=== PATIENT | female | born 1950 | race Caucasian/White ===

== ENCOUNTER 2017-03-30 16:19 | Observation (INO) | payer MEDICARE, SELFPAY ==
[2017-03-30] VITALS (9 sets, daily range): BP systolic 111–145; BP diastolic 66–75; PULSE 66–75; RESP 16–21; TEMP 36.6–36.9; O2SAT 94–98; BMI 46.3; BMI 46.7; BMI 46.4
[2017-03-30 16:45] LABS: Bedside Glucose 109 mg/dL (70-110)
--- NOTE | 2017-03-30 16:45 | CT_ITS ---
STUDY: CT BRAIN WITHOUT CONTRAST REASON FOR EXAM: Female, 67 years old. Right-sided paresthesias RADIATION DOSAGE (If Supplied By Facility): CTDIvol = ( 44.99 ) mGy, DLP = ( 745.49 ) mGycm TECHNIQUE: Transaxial CT imaging of the brain was performed without administration of intravenous contrast material. Sagittal and coronal images are reformatted. Individualized dose optimization techniques were used for this CT. COMPARISON: 03/23/2014. FINDINGS: Normal soft tissue structures. Normal calvarium. Normal size ventricles and extra-axial spaces for the patient's age. There are areas of decreased attenuation within the white matter tracts of the supratentorial brain, consistent with microvascular disease changes. Normal basal ganglia. Stable small right thalamic lacunar infarct.. Normal brainstem. Normal cerebellum. There is no intracranial hemorrhage. There are no findings of an acute ischemic infarction. Normal visualized paranasal sinuses. CT/Brain/Head without Contrast IMPRESSION: Chronic involutional changes. No acute intracranial processes. Stable right thalamic lacunar infarct. Electronically Signed: Ian Hu DO at 18:38 EST , Service support ,
--- NOTE | 2017-03-30 16:45 | EKG12_ITS ---
Test Reason : NEURO Blood Pressure : / mmHG Vent. Rate : 062 BPM Atrial Rate : 062 BPM P-R Int : 186 ms QRS Dur : 154 ms QT Int : 488 ms P-R-T Axes : 063 -51 098 degrees QTc Int : 495 ms Normal sinus rhythm Left axis deviation Left bundle branch block Abnormal ECG Confirmed by CRISTIANO CROCKER ([id number]), clinical editor NETTE WALLACE ([id number] on 04/03/2017 9:42:03 AM Referred By: TANYA Confirmed By:CRISTIANO CROCKER
--- NOTE | 2017-03-30 17:16 | ED.VISSUMM ---
- ER Visit Summary Date of Service: 03/30/17 Chief Complaint: Paresthesia right side that started at 1530 History of Present Illness: The patient is a 67 F resents with paresthesia right side that lasted approximately an hour. She has no symptoms presently. She had no other symptoms. Past history of CVA, Prinzmetal angina, hypertension, hypercholesterolemia, obstructive sleep apnea and GERD. Physical Examination: Blood pressure is 145/75. Head is atraumatic normocephalic. Pupils are equal round reactive. Extraocular muscles are intact. TMs are pearly white with landmarks noted. Nares patent with no drainage. Posterior pharynx without erythema or exudate. Uvula is midline. There is no dysphonia or dysphasia. Trachea is midline. There is no stridor with auscultation of the neck. Heart is regular without murmur, gallop or rub. S1 and S2 are normal. Lungs are clear to auscultation with good movement of air bilaterally. Patient is alert and oriented ?3. Motor is 5 over 5. Sensory is intact. DTRs are symmetric with no clonus or Babinski sign. Cranial 2 through 12 are intact. Cerebellar testing is normal. NIH is 0 Test Results: EKG reveals a sinus rhythm rate of 62 with left bundle branch block. CT reveals a stable old thalamic infarct. Blood work is unremarkable. Emergency Department Course and Treatment: Order set was initiated. Dr. Almeida the hospitalist was made aware patients that she will need further workup since she has had a prior stroke and is on antiplatelet medication. Treatment Plan: Dr. Almeida the hospitalist was contacted and will admit patient. Disposition: 23 hour observation PCU Impression: Left hemispheric TIA Prior lacunar thalamic infarct History of hypertension History of hypercholesterolemia History of obstructive sleep apnea History of Prinzmetal angina This note was generated with NebuAdation software. It may contain incorrect words, spelling, and punctuation that were not noted in review of the chart prior to signing ED Disposition - Plan for ED Patient: Chief Complaint: General Illness Referrals: Patric Sneed MD [Primary Care Provider] -
[2017-03-30 17:35] LABS: Absolute Lymphocyte Count 2.06 X10^3/ul (0.83-4.51); Absolute Neutrophil Count 2.2 X10^3/uL (2.0-7.7); Basophil# 0.01 X10^3/uL; Basophil% 0.2 % (0-1); Eosinophil# 0.07 X10^3/uL; Eosinophils% 1.4 % (0-5); Hematocrit 35.1 % (37-47); Hemoglobin 11.1 g/dl (12.0-15.0); Lymphocyte # 2.06 X10^3/ul (4.0); Lymphocyte % 41.7 % (19-41); Mean Corp Hgb Conc 31.6 g/gl (32-36); Mean Corpuscular Hgb 30.4 pg (27.0-32.0); Mean Corpuscular Volume 96.2 fL (81-99); Mean Platelet Vol. 11.6 fl (6.2-12.0); Monocyte# 0.61 X10^3/uL; Monocyte% 12.3 % (0-10); Neutrophil # 2.17 X10^3/uL (2.7-7.7); Platelet Count 213 K/mm3 (150-450); RBC Distribution Width CV 14.3 % (11.6-14.6); RBC Distribution Width SD 50.3 fl (35.1-43.9); Red Blood Count 3.65 M/mm3 (4.2-5.4); White Blood Count 4.9 K/mm3 (4.4-11.0)
[2017-03-30 17:36] LABS: POSITIVE COUNT NO; POSITIVE DIFFERENTIAL NO; POSITIVE MORPHOLOGY NO
[2017-03-30 17:42] LABS: International Normalized Ratio 1.1; Partial Thromboplast Time 28.9 Seconds (24.1-36.2); Prothrombin Time (Protime)PT. 13.9 SECONDS (11.7-14.9)
[2017-03-30 17:49] LABS: Anion Gap 7 (5-15); BUN 18 mg/dL (7-18); BUN/Creat Ratio 18.7 RATIO (10-20); Calcium,Total 8.8 mg/dL (8.5-10.1); Chloride 105 mmol/L (98-107); Creatinine, Serum 0.96 mg/dL (0.55-1.02); EST Glomerular Filtration Rate 62 mL/min (>60); Est Glom Filt Rate - Afr Amer 75 mL/min (>60); Estimated Creatinine Clearance 45.59 ml/min; Glucose 101 mg/dL (70-110); Potassium 3.9 mmol/L (3.5-5.1); Sodium Level 141 mmol/L (136-145)
--- NOTE | 2017-03-30 18:00 | PCM.HP.STD ---
<Jarrett Jimenez - Last Filed: 03/30/17 18:05> Problem List (1) TIA (transient ischemic attack) Status: Acute (2) CAD (coronary artery disease) Status: Chronic (3) Anxiety and depression Status: Chronic (4) Cerebrovascular disease or lesion Status: Chronic Comment: Distal narrowing of left vertebral artery (5) Fibromyalgia Status: Chronic (6) GERD (gastroesophageal reflux disease) Status: Chronic (7) Hyperlipidemia Status: Chronic (8) Hypertension Status: Chronic (9) Morbid obesity with BMI of 45.0-49.9, adult Status: Chronic (10) ZENON (obstructive sleep apnea) Status: Chronic (11) Prinzmetal's angina Status: Chronic Comment: hx AMI no significant CAD per pt report multiple heart cath History of Present Illness Date of Admission: 03/30/17 Chief Complaint: Right-sided facial paresthesias The patient is a 67 year old F with past medical history of TIA, CAD, NV, Prinzmetal angina, hypertension, prior TIA, hyperlipidemia, obstructive sleep apnea who presented to the emergency room with chief complaint of right-sided facial paresthesias that began approximately 3 PM today. Symptoms began suddenly while she was at home. She noticed that her right side of her tongue felt numb and she was drinking water. She also noticed her right cheek and jaw and neck felt numb as well, no numbness of the forehead. She also noted some palpitations in her chest at the time that she was feeling this. Symptoms lasted for about an hour before gradually resolving on their own. She called the squad and was brought to the emergency room. When she stood up to get on the cot she had some dizziness, however she notes that it was not anything unusual, this happens all the time for her and she feels that it is related to her blood pressure medication. She denied any focal weaknesses in her arms or legs. No ataxia or slurred speech. She had similar symptoms when she was diagnosed with a TIA in 2015 and found to have distal vertebral narrowing. She is only on aspirin at home and no statin as she has severe all over pain with statins, she has tried multiple different statins. Currently she is resting comfortably in bed in the emergency department with no symptoms. She lives alone at home with the help of a home health aide which she has for chronic weakness and difficulty getting around. [] Past Medical History Past Medical History (Chronic Problems): Chronic Problems Anxiety and depression (Chronic) ZENON (obstructive sleep apnea) (Chronic) Morbid obesity with BMI of 45.0-49.9, adult (Chronic) Fibromyalgia (Chronic) Hyperlipidemia (Chronic) GERD (gastroesophageal reflux disease) (Chronic) Hypertension (Chronic) Prinzmetal's angina (Chronic) hx AMI no significant CAD per pt report multiple heart cath Cerebrovascular disease or lesion (Chronic) Distal narrowing of left vertebral artery CAD (coronary artery disease) (Chronic) Allergies propoxyphene napsylate [From Darvocet-N 100] Allergy (Verified 12/08/16 15:33) Shortness of breath amitriptyline HCl [From Elavil] Adverse Reaction (Verified 12/08/16 15:33) SEIZURES diltiazem HCl [From Cardizem] Adverse Reaction (Verified 12/08/16 15:33) PANIC ATTACKS, CONFUSION gabapentin Adverse Reaction (Verified 12/08/16 15:33) Other isosorbide mononitrate [From Imdur] Adverse Reaction (Verified 12/08/16 15:33) MIGRAINE,VOMITING paroxetine HCl [From Paxil] Adverse Reaction (Verified 12/08/16 15:33) SEIZURES TAPE Adverse Reaction (Uncoded 12/08/16 15:33) BLISTERS Home Medications: Ambulatory Orders Medication Instructions Recorded Duloxetine Hcl [Cymbalta] 30 mg PO DAILY 05/05/13 Furosemide [Lasix] 60 mg PO DAILY 05/05/13 Garlic 1,000 mg PO DAILY 05/05/13 Lisinopril [Zestril] 40 mg PO DAILY 05/05/13 Lorazepam [Ativan] 0.5 mg PO BID 05/05/13 Magnesium Oxide [Mag-Ox 400] 400 mg PO BID 05/05/13 Nitroglycerin [Nitrostat] 0.4 mg SUBLINGUAL Q5M PRN 05/05/13 Omeprazole [Prilosec] 40 mg PO DAILY 05/05/13 Aspirin [Aspirin, Baby] 81 mg PO DAILY 03/23/14 Ranolazine [Ranexa] 1,000 mg PO BID 03/24/14 Acetaminophen/Diphenhydramine 1 each PO QHS #0 06/13/14 [Acetaminophen Pm Caplet] [place]-3 Fatty Acids/Fish Oil 1 each PO DAILY 06/13/14 [[place] 3 Fish Oil Softgel] Amlodipine [Norvasc] 5 mg PO DAILY 12/08/16 Carvedilol [Coreg] 12.5 mg PO BID 12/08/16 Naproxen [Naprosyn] 500 mg PO BID PRN PRN 03/30/17 Surgical History: - - Abdominal tumor expiratory laparotomy, hysterectomy, cervical cancer laser surgery, several ovarian cyst removals, right-sided hip replacement, possible appendectomy. 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 Denies: Chest Pain, Chest Tightness, Edema, Heaviness, Syncope Respiratory: Denies: Cough, Shortness of breath at rest, Sputum production Gastrointestinal: Denies: Abdominal Pain, Nausea, Vomiting Genitourinary: Denies: Dysuria Musculoskeletal: Denies: Joint Pain, Joint Tenderness Skin: Denies: Rash, Wounds Neurological: Reports: Numbness. Denies: Balance problems, Blurred vision, Double vision, Change in Speech, Slurred speech, Confusion, Focal weakness, Headaches, Tingling Psychiatric: Denies: Anxiety, Depression, Homicidal Ideations, Suicidal Ideations Hematologic/ Lymphatic: Denies: Easy Bruising, Easy Bleeding VTE Information - Inpt Only VTE Present on Admission: No VTE Mechan Device Prophylaxis: SCD's VTE Pharm Prophylaxis ordered?: Yes Patient Problems: Active and Suspected Problems TIA (transient ischemic attack) (Acute) - Physical Exam General: Alert, Oriented x3, Cooperative HEENT: Atraumatic, PERRLA, EOMI, Normocephalic Neck: Supple, No JVD, Negative Carotid Bruits Lungs: Clear to auscultation, Normal air movement Cardiovascular: Regular rate, No murmurs Abdomen: Bowel Sounds Present, Soft, Non Tender Extremities: No edema, Capillary Refill Less than 3 Seconds Skin: No rashes, No breakdown Musculoskeletal: No Tenderness to Palpation of Joints or Extremities Neurological: Cranial nerves II-XII grossly intact Psych/Mental Status: Normal Affect, Appropriate Vital Signs Temp Pulse Resp BP Pulse Ox 97.9 F 73 17 145/75 H 98 03/30/17 16:20 03/30/17 16:28 03/30/17 16:28 03/30/17 16:28 03/30/17 17:24 Oxygen Delivery Method Room Air Weight: 115 kg Body Mass Index (BMI) 46.3 Finger Stick Blood Glucose 109 Laboratory Tests Past 24 Hrs 03/30/17 03/30/17 03/30/17 17:21 17:21 17:21 WBC 4.9 RBC 3.65 L Hgb 11.1 L Hct 35.1 L MCV 96.2 MCH 30.4 MCHC 31.6 L RDW 14.3 RDW Differential 50.3 H Plt Count 213 MPV 11.6 Immature Gran % (Auto) 0.400 Neut % (Auto) 44.0 L Lymph % (Auto) 41.7 H [place] % (Auto) 12.3 H Eos % (Auto) 1.4 Baso % (Auto) 0.2 Absolute Neuts (auto) 2.2 Absolute Lymphs (auto) 2.06 Total Counted Not Reportable PT 13.9 INR 1.1 APTT 28.9 Sodium 141 Potassium 3.9 Chloride 105 Carbon Dioxide 29.0 Anion Gap 7 BUN 18 Creatinine 0.96 Estim Creat Clear Calc 45.59 Est GFR (MDRD) Af Amer 75 Est GFR (MDRD) Non-Af 62 BUN/Creatinine Ratio 18.7 Glucose 101 Calcium 8.8 Troponin I < 0.02 POC Glucose 03/30/17 16:40 POC Glucose 109 Assessment/Plan Active and Suspected Problems TIA (transient ischemic attack) (Acute) 1. TIA - plan for MRI / MRA of the brain, telemetry, 2D echo. She did have palpitations at time of symptoms - with underlying heart disease, morbid obesity and ZENON she is at risk having underlying AF. Neuro consult. Symptoms resolved entirely at this time. Physical exam is benign. Continue aspirin, intolerant of statins. PTOT/ST. Hx of TIA last 2014 with left distal vertebral artery narrowing. 2. Hx CAD, NV, Prinzmetal angina - Pt of Dr. Preston, continue home meds - coreg, asa, lasix, norvasc, ranexa, lisinopril 3. HLD - intolerant of statins - on fish oil only 4. ZENON 5. Morbid obesity 6. HTN - mildly elevated in ER - defer aggressive management given acute neurologic change 7. GERD - ppi 8. Chronic back pain from spinal stenosis and fibromyalgia with associated debility DVT ppx: lovenox, SCDs DC planning currently lives alone with Home health aid. This patient was seen by Jarrett Jimenez PA-C under the supervision of Doctor Boris. <Alejandro Escalante - Last Filed: 03/30/17 19:09> History of Present Illness Seen and examined Patient had right sided facial paresthesias/numbness that lasted for about an hour as mentioned above. Denies any weakness or sorry system in extremities, dysarthria or dysphagia. She had TIA in 2015 and was evaluated in [facility] found to have distal vertebral narrowing. [] Past Medical History Allergies propoxyphene napsylate [From Darvocet-N 100] Allergy (Verified 12/08/16 15:33) Shortness of breath amitriptyline HCl [From Elavil] Adverse Reaction (Verified 12/08/16 15:33) SEIZURES diltiazem HCl [From Cardizem] Adverse Reaction (Verified 12/08/16 15:33) PANIC ATTACKS, CONFUSION gabapentin Adverse Reaction (Verified 12/08/16 15:33) Other isosorbide mononitrate [From Imdur] Adverse Reaction (Verified 12/08/16 15:33) MIGRAINE,VOMITING paroxetine HCl [From Paxil] Adverse Reaction (Verified 12/08/16 15:33) SEIZURES TAPE Adverse Reaction (Uncoded 12/08/16 15:33) BLISTERS - Physical Exam Lungs: Clear to auscultation, Normal air movement Cardiovascular: Regular rate, Regular Rhythm, Normal S1, Normal S2, No murmurs Abdomen: Bowel Sounds Present, Soft, Non Tender Extremities: Edema - Chronic bilateral lower extremity edema most probably lymphedema Neurological: Cranial nerves II-XII grossly intact, Deep Tendon Reflexes 2+/4 and Symmetrical, Neuro grossly intact, Motor Exam 5/5 strength throughout Psych/Mental Status: Normal Affect, Appropriate Vital Signs Temp Pulse Resp BP Pulse Ox 97.9 F 70 21 H 111/69 94 03/30/17 16:20 03/30/17 18:36 03/30/17 18:36 03/30/17 18:36 03/30/17 18:36 Oxygen Delivery Method Room Air Weight: 253 lb 8.505 oz Body Mass Index (BMI) 46.3 Finger Stick Blood Glucose 109 Laboratory Tests Past 24 Hrs 03/30/17 03/30/17 03/30/17 17:21 17:21 17:21 WBC 4.9 RBC 3.65 L Hgb 11.1 L Hct 35.1 L MCV 96.2 MCH 30.4 MCHC 31.6 L RDW 14.3 RDW Differential 50.3 H Plt Count 213 MPV 11.6 Immature Gran % (Auto) 0.400 Neut % (Auto) 44.0 L Lymph % (Auto) 41.7 H [place] % (Auto) 12.3 H Eos % (Auto) 1.4 Baso % (Auto) 0.2 Absolute Neuts (auto) 2.2 Absolute Lymphs (auto) 2.06 Total Counted Not Reportable PT 13.9 INR 1.1 APTT 28.9 Sodium 141 Potassium 3.9 Chloride 105 Carbon Dioxide 29.0 Anion Gap 7 BUN 18 Creatinine 0.96 Estim Creat Clear Calc 45.59 Est GFR (MDRD) Af Amer 75 Est GFR (MDRD) Non-Af 62 BUN/Creatinine Ratio 18.7 Glucose 101 Calcium 8.8 Troponin I < 0.02 POC Glucose 03/30/17 16:40 POC Glucose 109 Assessment/Plan This patient was seen in conjunction with Jarrett PEACOCK. I have independently interviewed and examined the patient and reviewed pertinent history, examination findings, laboratory and plan of management. I have reviewed the note and agree with the documented findings with the few additional points. In brief, patient is admitted for right-sided facial numbness which is resolved. Patient had previous TIA in 2014. She also has history of coronary artery disease which is Prinzmetal angina was followed Dr. Powell. Currently admitted for TIA workup as mentioned above. Twelve-lead EKG shows normal sinus rhythm, LAD, left bundle branch block at 62 bpm. QRS interval 154 ms. We will try to get medical records from [facility] for previous MRI and MRA. I have discussed my assessment with Jarrett PEACOCK and orders have been reviewed. Code Visit OBSV E&M: 61366 Initial observation care L3
--- NOTE | 2017-03-30 18:04 | HP.PCM_ITS ---
<Jarrett Jimenez - Last Filed: 03/30/17 18:05> Problem List (1) TIA (transient ischemic attack) Status: Acute (2) CAD (coronary artery disease) Status: Chronic (3) Anxiety and depression Status: Chronic (4) Cerebrovascular disease or lesion Status: Chronic Comment: Distal narrowing of left vertebral artery (5) Fibromyalgia Status: Chronic (6) GERD (gastroesophageal reflux disease) Status: Chronic (7) Hyperlipidemia Status: Chronic (8) Hypertension Status: Chronic (9) Morbid obesity with BMI of 45.0-49.9, adult Status: Chronic (10) ZENNO (obstructive sleep apnea) Status: Chronic (11) Prinzmetal's angina Status: Chronic Comment: hx AMI no significant CAD per pt report multiple heart cath History of Present Illness Date of Admission: 03/30/17 Chief Complaint: Right-sided facial paresthesias The patient is a 67 year old F with past medical history of TIA, CAD, [place], Prinzmetal angina, hypertension, prior TIA, hyperlipidemia, obstructive sleep apnea who presented to the emergency room with chief complaint of right-sided facial paresthesias that began approximately 3 PM today. Symptoms began suddenly while she was at home. She noticed that her right side of her tongue felt numb and she was drinking water. She also noticed her right cheek and jaw and neck felt numb as well, no numbness of the forehead. She also noted some palpitations in her chest at the time that she was feeling this. Symptoms lasted for about an hour before gradually resolving on their own. She called the squad and was brought to the emergency room. When she stood up to get on the cot she had some dizziness, however she notes that it was not anything unusual, this happens all the time for her and she feels that it is related to her blood pressure medication. She denied any focal weaknesses in her arms or legs. No ataxia or slurred speech. She had similar symptoms when she was diagnosed with a TIA in 2015 and found to have distal vertebral narrowing. She is only on aspirin at home and no statin as she has severe all over pain with statins, she has tried multiple different statins. Currently she is resting comfortably in bed in the emergency department with no symptoms. She lives alone at home with the help of a home health aide which she has for chronic weakness and difficulty getting around. [] Past Medical History Past Medical History (Chronic Problems): Chronic Problems Anxiety and depression (Chronic) ZENON (obstructive sleep apnea) (Chronic) Morbid obesity with BMI of 45.0-49.9, adult (Chronic) Fibromyalgia (Chronic) Hyperlipidemia (Chronic) GERD (gastroesophageal reflux disease) (Chronic) Hypertension (Chronic) Prinzmetal's angina (Chronic) hx AMI no significant CAD per pt report multiple heart cath Cerebrovascular disease or lesion (Chronic) Distal narrowing of left vertebral artery CAD (coronary artery disease) (Chronic) Allergies propoxyphene napsylate [From Darvocet-N 100] Allergy (Verified 12/08/16 15:33) Shortness of breath amitriptyline HCl [From Elavil] Adverse Reaction (Verified 12/08/16 15:33) SEIZURES diltiazem HCl [From Cardizem] Adverse Reaction (Verified 12/08/16 15:33) PANIC ATTACKS, CONFUSION gabapentin Adverse Reaction (Verified 12/08/16 15:33) Other isosorbide mononitrate [From Imdur] Adverse Reaction (Verified 12/08/16 15:33) MIGRAINE,VOMITING paroxetine HCl [From Paxil] Adverse Reaction (Verified 12/08/16 15:33) SEIZURES TAPE Adverse Reaction (Uncoded 12/08/16 15:33) BLISTERS Home Medications: Ambulatory Orders Medication Instructions Recorded Duloxetine Hcl [Cymbalta] 30 mg PO DAILY 05/05/13 Furosemide [Lasix] 60 mg PO DAILY 05/05/13 Garlic 1,000 mg PO DAILY 05/05/13 Lisinopril [Zestril] 40 mg PO DAILY 05/05/13 Lorazepam [Ativan] 0.5 mg PO BID 05/05/13 Magnesium Oxide [Mag-Ox 400] 400 mg PO BID 05/05/13 Nitroglycerin [Nitrostat] 0.4 mg SUBLINGUAL Q5M PRN 05/05/13 Omeprazole [Prilosec] 40 mg PO DAILY 05/05/13 Aspirin [Aspirin, Baby] 81 mg PO DAILY 03/23/14 Ranolazine [Ranexa] 1,000 mg PO BID 03/24/14 Acetaminophen/Diphenhydramine 1 each PO QHS #0 06/13/14 [Acetaminophen Pm Caplet] Cascade-3 Fatty Acids/Fish Oil 1 each PO DAILY 06/13/14 [Cascade 3 Fish Oil Softgel] Amlodipine [Norvasc] 5 mg PO DAILY 12/08/16 Carvedilol [Coreg] 12.5 mg PO BID 12/08/16 Naproxen [Naprosyn] 500 mg PO BID PRN PRN 03/30/17 Surgical History: - - Abdominal tumor expiratory laparotomy, hysterectomy, cervical cancer laser surgery, several ovarian cyst removals, right-sided hip replacement, possible appendectomy. Psychiatric History: Anxiety, Depression [employer] History: cervical cancer, endometriosis, ovarian cysts Lives: Alone Smoking Status: Former smoker Tobacco Use: Non-smoker Alcohol: None Drugs: None - *Family History Maternal History Items: Cancer, Heart Disease, Hypertension Paternal History Items: Cancer, Heart Disease, Hypertension Review of Systems Constitutional: Denies: Chills, Fever, Weight Change HEENT: Denies: Head Aches, Sinus Congestion, Sinus Drainage Cardiovascular: Reports: Light Headedness, Palpitations. Denies: Chest Pain, Chest Tightness, Edema, Heaviness, Syncope Respiratory: Denies: Cough, Shortness of breath at rest, Sputum production Gastrointestinal: Denies: Abdominal Pain, Nausea, Vomiting Genitourinary: Denies: Dysuria Musculoskeletal: Denies: Joint Pain, Joint Tenderness Skin: Denies: Rash, Wounds Neurological: Reports: Numbness. Denies: Balance problems, Blurred vision, Double vision, Change in Speech, Slurred speech, Confusion, Focal weakness, Headaches, Tingling Psychiatric: Denies: Anxiety, Depression, Homicidal Ideations, Suicidal Ideations Hematologic/ Lymphatic: Denies: Easy Bruising, Easy Bleeding VTE Information - Inpt Only VTE Present on Admission: No VTE Mechan Device Prophylaxis: SCD's VTE Pharm Prophylaxis ordered?: Yes Patient Problems: Active and Suspected Problems TIA (transient ischemic attack) (Acute) - Physical Exam General: Alert, Oriented x3, Cooperative HEENT: Atraumatic, PERRLA, EOMI, Normocephalic Neck: Supple, No JVD, Negative Carotid Bruits Lungs: Clear to auscultation, Normal air movement Cardiovascular: Regular rate, No murmurs Abdomen: Bowel Sounds Present, Soft, Non Tender Extremities: No edema, Capillary Refill Less than 3 Seconds Skin: No rashes, No breakdown Musculoskeletal: No Tenderness to Palpation of Joints or Extremities Neurological: Cranial nerves II-XII grossly intact Psych/Mental Status: Normal Affect, Appropriate Vital Signs Temp Pulse Resp BP Pulse Ox 97.9 F 73 17 145/75 H 98 03/30/17 16:20 03/30/17 16:28 03/30/17 16:28 03/30/17 16:28 03/30/17 17:24 Oxygen Delivery Method Room Air Weight: 115 kg Body Mass Index (BMI) 46.3 Finger Stick Blood Glucose 109 Laboratory Tests Past 24 Hrs 03/30/17 03/30/17 03/30/17 17:21 17:21 17:21 WBC 4.9 RBC 3.65 L Hgb 11.1 L Hct 35.1 L MCV 96.2 MCH 30.4 MCHC 31.6 L RDW 14.3 RDW Differential 50.3 H Plt Count 213 MPV 11.6 Immature Gran % (Auto) 0.400 Neut % (Auto) 44.0 L Lymph % (Auto) 41.7 H Refugio % (Auto) 12.3 H Eos % (Auto) 1.4 Baso % (Auto) 0.2 Absolute Neuts (auto) 2.2 Absolute Lymphs (auto) 2.06 Total Counted Not Reportable PT 13.9 INR 1.1 APTT 28.9 Sodium 141 Potassium 3.9 Chloride 105 Carbon Dioxide 29.0 Anion Gap 7 BUN 18 Creatinine 0.96 Estim Creat Clear Calc 45.59 Est GFR (MDRD) Af Amer 75 Est GFR (MDRD) Non-Af 62 BUN/Creatinine Ratio 18.7 Glucose 101 Calcium 8.8 Troponin I < 0.02 POC Glucose 03/30/17 16:40 POC Glucose 109 Assessment/Plan Active and Suspected Problems TIA (transient ischemic attack) (Acute) 1. TIA - plan for MRI / MRA of the brain, telemetry, 2D echo. She did have palpitations at time of symptoms - with underlying heart disease, morbid obesity and ZENON she is at risk having underlying AF. Neuro consult. Symptoms resolved entirely at this time. Physical exam is benign. Continue aspirin, intolerant of statins. PTOT/ST. Hx of TIA last 2014 with left distal vertebral artery narrowing. 2. Hx CAD, ME, Prinzmetal angina - Pt of Dr. Preston, continue home meds - coreg , asa, lasix, norvasc, ranexa, lisinopril 3. HLD - intolerant of statins - on fish oil only 4. ZENON 5. Morbid obesity 6. HTN - mildly elevated in ER - defer aggressive management given acute neurologic change 7. GERD - ppi 8. Chronic back pain from spinal stenosis and fibromyalgia with associated debility DVT ppx: lovenox, SCDs DC planning currently lives alone with Home health aid. This patient was seen by Jarrett Jimenez PA-C under the supervision of Doctor Boris. <Alejandro Escalante - Last Filed: 03/30/17 19:09> History of Present Illness Seen and examined Patient had right sided facial paresthesias/numbness that lasted for about an hour as mentioned above. Denies any weakness or sorry system in extremities, dysarthria or dysphagia. She had TIA in 2015 and was evaluated in [facility] found to have distal vertebral narrowing. [] Past Medical History Allergies propoxyphene napsylate [From Darvocet-N 100] Allergy (Verified 12/08/16 15:33) Shortness of breath amitriptyline HCl [From Elavil] Adverse Reaction (Verified 12/08/16 15:33) SEIZURES diltiazem HCl [From Cardizem] Adverse Reaction (Verified 12/08/16 15:33) PANIC ATTACKS, CONFUSION gabapentin Adverse Reaction (Verified 12/08/16 15:33) Other isosorbide mononitrate [From Imdur] Adverse Reaction (Verified 12/08/16 15:33) MIGRAINE,VOMITING paroxetine HCl [From Paxil] Adverse Reaction (Verified 12/08/16 15:33) SEIZURES TAPE Adverse Reaction (Uncoded 12/08/16 15:33) BLISTERS - Physical Exam Lungs: Clear to auscultation, Normal air movement Cardiovascular: Regular rate, Regular Rhythm, Normal S1, Normal S2, No murmurs Abdomen: Bowel Sounds Present, Soft, Non Tender Extremities: Edema - Chronic bilateral lower extremity edema most probably lymphedema Neurological: Cranial nerves II-XII grossly intact, Deep Tendon Reflexes 2+/4 and Symmetrical, Neuro grossly intact, Motor Exam 5/5 strength throughout Psych/Mental Status: Normal Affect, Appropriate Vital Signs Temp Pulse Resp BP Pulse Ox 97.9 F 70 21 H 111/69 94 03/30/17 16:20 03/30/17 18:36 03/30/17 18:36 03/30/17 18:36 03/30/17 18:36 Oxygen Delivery Method Room Air Weight: 253 lb 8.505 oz Body Mass Index (BMI) 46.3 Finger Stick Blood Glucose 109 Laboratory Tests Past 24 Hrs 03/30/17 03/30/17 03/30/17 17:21 17:21 17:21 WBC 4.9 RBC 3.65 L Hgb 11.1 L Hct 35.1 L MCV 96.2 MCH 30.4 MCHC 31.6 L RDW 14.3 RDW Differential 50.3 H Plt Count 213 MPV 11.6 Immature Gran % (Auto) 0.400 Neut % (Auto) 44.0 L Lymph % (Auto) 41.7 H Refugio % (Auto) 12.3 H Eos % (Auto) 1.4 Baso % (Auto) 0.2 Absolute Neuts (auto) 2.2 Absolute Lymphs (auto) 2.06 Total Counted Not Reportable PT 13.9 INR 1.1 APTT 28.9 Sodium 141 Potassium 3.9 Chloride 105 Carbon Dioxide 29.0 Anion Gap 7 BUN 18 Creatinine 0.96 Estim Creat Clear Calc 45.59 Est GFR (MDRD) Af Amer 75 Est GFR (MDRD) Non-Af 62 BUN/Creatinine Ratio 18.7 Glucose 101 Calcium 8.8 Troponin I < 0.02 POC Glucose 03/30/17 16:40 POC Glucose 109 Assessment/Plan This patient was seen in conjunction with Jarrett PEACOCK. I have independently interviewed and examined the patient and reviewed pertinent history, examination findings, laboratory and plan of management. I have reviewed the note and agree with the documented findings with the few additional points. In brief, patient is admitted for right-sided facial numbness which is resolved. Patient had previous TIA in 2014. She also has history of coronary artery disease which is Prinzmetal angina was followed Dr. Powell. Currently admitted for TIA workup as mentioned above. Twelve-lead EKG shows normal sinus rhythm, LAD, left bundle branch block at 62 bpm. QRS interval 154 ms. We will try to get medical records from [facility] for previous MRI and MRA. I have discussed my assessment with Jarrett PEACOCK and orders have been reviewed. Code Visit OBSV E&M: 97492 Initial observation care L3
[2017-03-30] MEDS: Ranolazine 500 MG Tablet 1000 MG PO (21:51)
[2017-03-30] MEDS: Magnesium Oxide 400 MG Tablet PO (21:52)
[2017-03-30] MEDS: Carvedilol 12.5 MG Tablet PO (21:52)
[2017-03-30] MEDS: Famotidine 20 MG Tablet PO (21:52)
[2017-03-30] MEDS: LORazepam 0.5 MG Tablet PO (21:52)
[2017-03-30] MEDS: Aspirin 81 MG TAB.CHEW PO (21:52)
[2017-03-30] MEDS: 0.9% Normal Saline 1,000 ML 50 ML IV (21:53)
[2017-03-30 23:31] LABS: Bedside Glucose 131 mg/dL (70-110)
[2017-03-31] VITALS (9 sets, daily range): BP systolic 106–156; BP diastolic 44–84; PULSE 59–74; RESP 16–20; TEMP 36.5–36.8; O2SAT 95–98; BMI 46.7
--- NOTE | 2017-03-31 05:55 | ECHOD_ITS ---
Reason For Study: TIA Procedure This was a 2D Doppler, Color Flow transthoracic echocardiogram. Exam performed portable in patient room. Left Ventricle Mildly dilated left ventricle. The estimated ejection fraction is 45-50 %. Normal diastology for age. Basal anteroseptal: Mildly hypokinetic. Mid-Anterior : Mildly hypokinetic. Anterior [place] : Hypokinetic. Right Ventricle Normal size and thickness. A moderator band is seen in the right ventricle. Normal systolic function. Atria Normal left atrium. Normal right atrium. Normal atrial septum. Mitral Valve The mitral valve is structurally normal. No prolapse or stenosis seen. Trivial mitral valve insufficiency. Tricuspid Valve Normal tricuspid valve. Trivial tricuspid valve insufficiency. Right ventricular systolic pressure estimated to be 35 mmHg. Aortic Valve Normal aortic valve. Trisinus/trileaflet aortic valve. Pulmonic Valve The pulmonic valve is not well visualized. Great Vessels Normal aortic root. Normal arch. Normal inferior vena cava. Inferior vena cava collapse with sniff. Pericardium/Pleural No pericardial effusion. MMode/2D Measurements & Calculations LVIDd: 5.4 cm IVSd: 1.1 cm Ao root diam: 2.9 cm LVIDs: 3.9 cm LVPWd: 1.3 cm LA dimension: 4.0 cm RVDd: 3.1 cm FS: 28.7 % LAV(MOD-sp4): 48.9 ml LA A4 area: 18.2 cm2 RA A4 area: 11.4 cm2 Time Measurements MV dec time: 0.18 sec Doppler Measurements & Calculations MV E max judson: 120.1 cm/sec Lat Peak E' Judson: 14.6 cm/sec Med Peak E' Judson: 7.2 cm/sec MV A max judson: 103.1 cm/sec E/E' lat: 8.2 E/E' med: 16.7 MV E/A: 1.2 MV V2 max: 136.8 cm/sec MV P1/2t max judson: 137.7 cm/sec Ao V2 max: 169.5 cm/sec MV max P.5 mmHg MV P1/2t: 77.8 msec Ao max P.5 mmHg MV V2 mean: 77.3 cm/sec MV dec slope: 518.2 cm/sec2 Ao V2 mean: 108.5 cm/sec MV mean P.9 mmHg MVA(P1/2t): 2.8 cm2 Ao mean P.4 mmHg MV V2 VTI: 40.0 cm Ao V2 VTI: 35.4 cm LV V1 max: 134.0 cm/sec PA V2 max: 140.6 cm/sec TR max judson: 275.2 cm/sec LV V1 max P.2 mmHg TR max P.3 mmHg LV V1 mean P.4 mmHg LV V1 mean: 85.2 cm/sec LV V1 VTI: 28.4 cm Interpretation Summary Mildly dilated left ventricle. The estimated ejection fraction is 45-50 %. Normal diastology for age. Basal anteroseptal: Mildly hypokinetic Mid-Anterior : Mildly hypokinetic Anterior [place] : Hypokinetic Trivial mitral valve insufficiency. Trivial tricuspid valve insufficiency. Right ventricular systolic pressure estimated to be 35 mmHg. Compared to echo report dated 03/23/2014, no appreciable changes noted. Ordering Physician: Alejandro Escalante Referring Physician: KIRSTIN REIS Performed By: Morris Leigh RCS
[2017-03-31 07:01] LABS: Bedside Glucose 101 mg/dL (70-110)
[2017-03-31] MEDS: Aspirin 81 MG TAB.CHEW PO (08:04)
--- NOTE | 2017-03-31 08:22 | PCM.PROGNOTE ---
Patient Problems: Active and Suspected Problems TIA (transient ischemic attack) (Acute) Subjective: Patient is a 67-year-old female with a past medical history of TIA, CAD, [place], Prinzmetal angina, hypertension, hyperlipidemia, morbid obesity, GERD, fibromyalgia, anxiety/depression and obstructive sleep apnea who presented to the emergency room complaining of right-sided facial numbness that began at approximately 3 PM on 03/30/2017. The symptoms lasted for approximately 1 hour and then began to resolve without treatment. She had similar symptoms in 2014 and was found to have distal vertebral narrowing. She takes aspirin at home but no statin and Plavix. Vital signs at presentation to the emergency room were temp 97.9, pulse rate 72, blood pressure 145/75, respiratory rate 21 she was 96-98% saturated on room air. Significant lab included a mild decrease in hemoglobin to 11.1.... Remainder of the lab was unremarkable. CT brain showed chronic involutional changes with no acute intracranial processes. There was a stable right thalamic lacunar infarct. She was admitted to the hospital and started on atorvastatin 80 mg nightly. She has been intolerant of statins in the past due to severe diffuse myalgia. Baby aspirin was continued. Consult was ordered with Dr. Roblero. MRI and echocardiogram were ordered. - Physical Exam General: Alert, Oriented x3, Cooperative, No apparent distress HEENT: Atraumatic Oral: Moist Mucosa Neck: Negative Carotid Bruits Lungs: Clear to auscultation Cardiovascular: Regular rate, Regular Rhythm, Normal S1, Normal S2, No rub noted, No Gallop, - - telemetry with LBBB and no significant ectopy Abdomen: Bowel Sounds Present, Soft, Non Tender, Non-Distended, Obese Extremities: No edema Skin: No rashes, No breakdown Neurological: Cranial nerves II-XII grossly intact, Neuro grossly intact Vital Signs Temp Pulse Resp BP Pulse Ox 97.7 F L 63 18 126/57 H 96 03/31/17 07:59 03/31/17 07:59 03/31/17 07:59 03/31/17 07:59 03/31/17 07:59 Oxygen Delivery Method Room Air Weight: 249 lb 1.957 oz Body Mass Index (BMI) 46.7 Intake and Output for Last 24 Hours 03/29/17 03/30/17 03/31/17 23:59 23:59 23:59 Intake Total 528 / 528 Balance 528 / 528 Laboratory Tests Past 24 Hrs 03/30/17 03/31/17 03/31/17 20:52 01:40 07:45 Troponin I < 0.02 < 0.02 Triglycerides Pending Cholesterol Pending LDL Cholesterol Pending VLDL Cholesterol Pending HDL Cholesterol Pending 03/31/17 07:45 Troponin I Pending Triglycerides Cholesterol LDL Cholesterol VLDL Cholesterol HDL Cholesterol POC Glucose 03/31/17 03/30/17 06:53 22:41 POC Glucose 101 131 H Assessment/Plan Active and Suspected Problems TIA (transient ischemic attack) (Acute) Impressions 1. TIA (acute) 2. hx of CAD, morbid obesity, Prinzmetal's angina, hypertension, hyperlipidemia, GERD, ischemic CM, fibromyalgia, anxiety/depression, ZENON complicate care, management, recovery and prognosis Will defer to Dr. Roblero but, I think she needs an event monitor and probably addition of Plavix to her drug regimen. MRI is negative for stroke Awaiting the MRA of the neck but the head shows small L vertebral artery that is known Await the consult by Dr. Roblero.
--- NOTE | 2017-03-31 08:31 | PN_ITS ---
Patient Problems: Active and Suspected Problems TIA (transient ischemic attack) (Acute) Subjective: Patient is a 67-year-old female with a past medical history of TIA, CAD, [place], Prinzmetal angina, hypertension, hyperlipidemia, morbid obesity, GERD, fibromyalgia, anxiety/depression and obstructive sleep apnea who presented to the emergency room complaining of right-sided facial numbness that began at approximately 3 PM on 03/30/2017. The symptoms lasted for approximately 1 hour and then began to resolve without treatment. She had similar symptoms in 2014 and was found to have distal vertebral narrowing. She takes aspirin at home but no statin and Plavix. Vital signs at presentation to the emergency room were temp 97.9, pulse rate 72, blood pressure 145/75, respiratory rate 21 she was 96-98% saturated on room air. Significant lab included a mild decrease in hemoglobin to 11.1.... Remainder of the lab was unremarkable. CT brain showed chronic involutional changes with no acute intracranial processes. There was a stable right thalamic lacunar infarct. She was admitted to the hospital and started on atorvastatin 80 mg nightly. She has been intolerant of statins in the past due to severe diffuse myalgia. Baby aspirin was continued. Consult was ordered with Dr. Roblero. MRI and echocardiogram were ordered. - Physical Exam General: Alert, Oriented x3, Cooperative, No apparent distress HEENT: Atraumatic Oral: Moist Mucosa Neck: Negative Carotid Bruits Lungs: Clear to auscultation Cardiovascular: Regular rate, Regular Rhythm, Normal S1, Normal S2, No rub noted , No Gallop, - - telemetry with LBBB and no significant ectopy Abdomen: Bowel Sounds Present, Soft, Non Tender, Non-Distended, Obese Extremities: No edema Skin: No rashes, No breakdown Neurological: Cranial nerves II-XII grossly intact, Neuro grossly intact Vital Signs Temp Pulse Resp BP Pulse Ox 97.7 F L 63 18 126/57 H 96 03/31/17 07:59 03/31/17 07:59 03/31/17 07:59 03/31/17 07:59 03/31/17 07:59 Oxygen Delivery Method Room Air Weight: 249 lb 1.957 oz Body Mass Index (BMI) 46.7 Intake and Output for Last 24 Hours 03/29/17 03/30/17 03/31/17 23:59 23:59 23:59 Intake Total 528 / 528 Balance 528 / 528 Laboratory Tests Past 24 Hrs 03/30/17 03/31/17 03/31/17 20:52 01:40 07:45 Troponin I < 0.02 < 0.02 Triglycerides Pending Cholesterol Pending LDL Cholesterol Pending VLDL Cholesterol Pending HDL Cholesterol Pending 03/31/17 07:45 Troponin I Pending Triglycerides Cholesterol LDL Cholesterol VLDL Cholesterol HDL Cholesterol POC Glucose 03/31/17 03/30/17 06:53 22:41 POC Glucose 101 131 H Assessment/Plan Active and Suspected Problems TIA (transient ischemic attack) (Acute) Impressions 1. TIA (acute) 2. hx of CAD, morbid obesity, Prinzmetal's angina, hypertension, hyperlipidemia , GERD, ischemic CM, fibromyalgia, anxiety/depression, ZENON complicate care, management, recovery and prognosis Will defer to Dr. Roblero but, I think she needs an event monitor and probably addition of Plavix to her drug regimen. MRI is negative for stroke Awaiting the MRA of the neck but the head shows small L vertebral artery that is known Await the consult by Dr. Roblero.
[2017-03-31 08:49] LABS: Cholesterol 276 mg/dL (200); High Density Lipoprotein 45 mg/dL; Triglycerides 269 mg/dL; Very Low Density Lipoprotein 54 mg/dL (5-40)
[2017-03-31] MEDS: Lisinopril 40 MG Tablet PO (11:22)
[2017-03-31] MEDS: Magnesium Oxide 400 MG Tablet PO (11:22)
[2017-03-31] MEDS: Pantoprazole Sodium 40 MG Tablet PO (11:23)
[2017-03-31] MEDS: Carvedilol 12.5 MG Tablet PO (11:23)
[2017-03-31] MEDS: Famotidine 20 MG Tablet PO (11:23)
[2017-03-31] MEDS: Furosemide 20 MG Tablet 60 MG PO (11:24)
[2017-03-31] MEDS: amLODIPine 5 MG Tablet PO (11:25)
[2017-03-31] MEDS: DULoxetine Hcl 30 MG Capsule PO (11:25)
[2017-03-31] MEDS: Ranolazine 500 MG Tablet 1000 MG PO (11:25)
[2017-03-31] MEDS: LORazepam 0.5 MG Tablet PO (11:30)
--- NOTE | 2017-03-31 13:24 | CON.PCM_ITS ---
Reason for Consult Date of Consultation: 03/31/17 Reason for Consultation: facial numbness History of Present Illness: The patient is a 67 year old right handed white female who presents with right facial sensory abnormalities starting at 3pm, still present buy improved. also noted couldnt feel temperature sensation on right side of tongue, no other neurologic symptoms. admits to significant stress, ongoing. no med changes or recent illness. reports also had a headache yesterday, now resolved. also has chronic headaches, takes tylenol about 2-3x/week. uses cpap nightly. also reports lightheadedness/dizzy today when stands. per h&p:The patient is a 67 year old F with past medical history of TIA, CAD, DE, Prinzmetal angina, hypertension, prior TIA, hyperlipidemia, obstructive sleep apnea who presented to the emergency room with chief complaint of right- sided facial paresthesias that began approximately 3 PM today. Symptoms began suddenly while she was at home. She noticed that her right side of her tongue felt numb and she was drinking water. She also noticed her right cheek and jaw and neck felt numb as well, no numbness of the forehead. She also noted some palpitations in her chest at the time that she was feeling this. Symptoms lasted for about an hour before gradually resolving on their own. She called the squad and was brought to the emergency room. When she stood up to get on the cot she had some dizziness, however she notes that it was not anything unusual, this happens all the time for her and she feels that it is related to her blood pressure medication. She denied any focal weaknesses in her arms or legs. No ataxia or slurred speech. She had similar symptoms when she was diagnosed with a TIA in 2014 and found to have distal vertebral narrowing. She is only on aspirin at home and no statin as she has severe all over pain with statins, she has tried multiple different statins. Currently she is resting comfortably in bed in the emergency department with no symptoms. She lives alone at home with the help of a home health aide which she has for chronic weakness and difficulty getting around. Past Medical History Past Medical History (Chronic Problems): Chronic Problems Anxiety and depression (Chronic) ZENON (obstructive sleep apnea) (Chronic) Morbid obesity with BMI of 45.0-49.9, adult (Chronic) Fibromyalgia (Chronic) Hyperlipidemia (Chronic) GERD (gastroesophageal reflux disease) (Chronic) Hypertension (Chronic) Prinzmetal's angina (Chronic) hx AMI no significant CAD per pt report multiple heart cath Cerebrovascular disease or lesion (Chronic) Distal narrowing of left vertebral artery CAD (coronary artery disease) (Chronic) Allergies propoxyphene napsylate [From Darvocet-N 100] Allergy (Verified 12/08/16 15:33) Shortness of breath amitriptyline HCl [From Elavil] Adverse Reaction (Verified 12/08/16 15:33) SEIZURES diltiazem HCl [From Cardizem] Adverse Reaction (Verified 12/08/16 15:33) PANIC ATTACKS, CONFUSION gabapentin Adverse Reaction (Verified 03/30/17 19:21) HALLUCINATIONS ibuprofen Adverse Reaction (Verified 03/30/17 19:21) HEART PALPITATIONS isosorbide mononitrate [From Imdur] Adverse Reaction (Verified 12/08/16 15:33) MIGRAINE,VOMITING paroxetine HCl [From Paxil] Adverse Reaction (Verified 12/08/16 15:33) SEIZURES TAPE Adverse Reaction (Uncoded 12/08/16 15:33) BLISTERS Home Medications: Ambulatory Orders Medication Instructions Recorded Duloxetine Hcl [Cymbalta] 30 mg PO DAILY 05/05/13 Furosemide [Lasix] 60 mg PO DAILY 05/05/13 Garlic 1,000 mg PO QHS 05/05/13 Lisinopril [Zestril] 40 mg PO DAILY 05/05/13 Lorazepam [Ativan] 0.5 mg PO BID 05/05/13 Magnesium Oxide [Mag-Ox 400] 400 mg PO BID 05/05/13 Nitroglycerin [Nitrostat] 0.4 mg SUBLINGUAL Q5M PRN 05/05/13 Omeprazole [Prilosec] 40 mg PO DAILY 05/05/13 Aspirin [Aspirin, Baby] 81 mg PO DAILY 03/23/14 Ranolazine [Ranexa] 1,000 mg PO BID 03/24/14 Acetaminophen/Diphenhydramine 1 each PO QHS #0 06/13/14 [Acetaminophen Pm Caplet] [place]-3 Fatty Acids/Fish Oil 1 each PO QHS 06/13/14 [[place] 3 Fish Oil Softgel] Amlodipine [Norvasc] 5 mg PO DAILY 12/08/16 Carvedilol [Coreg] 12.5 mg PO BID 12/08/16 Naproxen [Naprosyn] 500 mg PO BID PRN PRN 03/30/17 Niacin 400 mg PO QHS 03/30/17 Surgical History: - - Abdominal tumor expiratory laparotomy, hysterectomy, cervical cancer laser surgery, several ovarian cyst removals, right-sided hip replacement, possible appendectomy. Psychiatric History: Anxiety, Depression [employer]ODUCTION [employer] History: cervical cancer, endometriosis, ovarian cysts Lives: Alone Smoking Status: Former smoker Tobacco Use: Non-smoker Alcohol: None Drugs: None - *Family History Maternal History Items: Cancer, Heart Disease, Hypertension Paternal History Items: Cancer, Heart Disease, Hypertension Review of Systems Constitutional: Denies: Chills, Fever, Weight Change HEENT: Denies: Head Aches, Sinus Congestion, Sinus Drainage Cardiovascular: Denies: Chest Pain, Palpitations Respiratory: Denies: Cough, Shortness of breath at rest, Sputum production Gastrointestinal: Denies: Abdominal Pain, Nausea, Vomiting Genitourinary: Denies: Dysuria Musculoskeletal: Denies: Joint Pain, Joint Tenderness Skin: Denies: Rash, Wounds Neurological: Reports: Numbness. Denies: Focal weakness, Tingling Psychiatric: Denies: Anxiety, Depression, Homicidal Ideations, Suicidal Ideations Hematologic/ Lymphatic: Denies: Easy Bruising, Easy Bleeding Patient Problems: Active and Suspected Problems TIA (transient ischemic attack) (Acute) - Physical Exam General: Alert, Oriented x3, Cooperative HEENT: Atraumatic, PERRLA, EOMI, Normocephalic Neck: Supple, No JVD, Negative Carotid Bruits Lungs: Clear to auscultation, Normal air movement Cardiovascular: Regular rate, No murmurs Abdomen: Bowel Sounds Present, Soft, Non Tender Extremities: No edema, Capillary Refill Less than 3 Seconds Skin: No rashes, No breakdown Musculoskeletal: No Tenderness to Palpation of Joints or Extremities Neurological: Cranial nerves II-XII grossly intact Psych/Mental Status: Normal Affect, Appropriate Vital Signs Temp Pulse Resp BP Pulse Ox 36.5 C L 63 18 126/57 H 96 03/31/17 07:59 03/31/17 07:59 03/31/17 07:59 03/31/17 07:59 03/31/17 07:59 Oxygen Delivery Method Room Air Weight: 113 kg Body Mass Index (BMI) 46.7 Intake and Output for Last 24 Hours 03/29/17 03/30/17 03/31/17 23:59 23:59 23:59 Intake Total 978 / 978 Balance 978 / 978 Laboratory Tests Past 24 Hrs 03/30/17 03/31/17 03/31/17 20:52 01:40 07:45 Troponin I < 0.02 < 0.02 Triglycerides 269 H Cholesterol 276 H LDL Cholesterol 177 H VLDL Cholesterol 54 H HDL Cholesterol 45 03/31/17 07:45 Troponin I < 0.02 Triglycerides Cholesterol LDL Cholesterol VLDL Cholesterol HDL Cholesterol POC Glucose 03/31/17 03/30/17 06:53 22:41 POC Glucose 101 131 H Current Home Med List Medication Instructions Recorded Confirmed Type Duloxetine Hcl [Cymbalta] 30 mg PO DAILY 05/05/13 03/30/17 History Furosemide [Lasix] 60 mg PO DAILY 05/05/13 03/30/17 History Garlic 1,000 mg PO QHS 05/05/13 03/30/17 History Lisinopril [Zestril] 40 mg PO DAILY 05/05/13 03/30/17 History Lorazepam [Ativan] 0.5 mg PO BID 05/05/13 03/30/17 History Magnesium Oxide [Mag-Ox 400] 400 mg PO BID 05/05/13 03/30/17 History Nitroglycerin [Nitrostat] 0.4 mg SUBLINGUAL Q5M PRN 05/05/13 03/30/17 History Omeprazole [Prilosec] 40 mg PO DAILY 05/05/13 03/30/17 History Aspirin [Aspirin, Baby] 81 mg PO DAILY 03/23/14 03/30/17 History Ranolazine [Ranexa] 1,000 mg PO BID 03/24/14 03/30/17 History Acetaminophen/Diphenhydramine 1 each PO QHS #0 06/13/14 03/30/17 History [Acetaminophen Pm Caplet] [place]-3 Fatty Acids/Fish Oil 1 each PO QHS 06/13/14 03/30/17 History [[place] 3 Fish Oil Softgel] Amlodipine [Norvasc] 5 mg PO DAILY 12/08/16 03/30/17 History Carvedilol [Coreg] 12.5 mg PO BID 12/08/16 03/30/17 History Naproxen [Naprosyn] 500 mg PO BID PRN PRN 03/30/17 03/30/17 History Niacin 400 mg PO QHS 03/30/17 03/30/17 History Current Medications Generic Name Dose Route Start Last Admin Trade Name Jose PRN Reason Stop Dose Admin Amlodipine Besylate 5 mg 03/31/17 10:00 03/31/17 11:25 Norvasc PO 5 mg DAILY SETH Administration Aspirin 81 mg 03/30/17 20:04 03/31/17 08:04 Aspirin, Baby PO 81 mg DAILY@0800 SETH Administration Carvedilol 12.5 mg 03/30/17 22:00 03/31/17 11:23 Coreg PO 12.5 mg BID STEH Administration Duloxetine HCl 30 mg 03/31/17 10:00 03/31/17 11:25 Cymbalta PO 30 mg DAILY SETH Administration Famotidine 20 mg 03/30/17 22:00 03/31/17 11:23 Pepcid PO 20 mg BID SETH Administration Furosemide 60 mg 03/31/17 10:00 03/31/17 11:24 Lasix PO 60 mg DAILY SETH Administration Heparin Sodium (Porcine) 5,000 unit 03/30/17 22:00 03/31/17 11:21 Heparin Na SC 5,000 u BID SETH Administration Sodium Chloride 1,000 mls @ 50 mls/hr 03/30/17 20:04 03/30/17 21:53 IV 50 mls/hr .Q20H SETH Administration Labetalol HCl 10 mg 03/30/17 20:04 Trandate IV 03/31/17 20:05 Q10M PRN MAINTAIN SBP GOALS Lisinopril 40 mg 03/31/17 10:00 03/31/17 11:22 Zestril PO 40 mg DAILY SETH Administration Lorazepam 0.5 mg 03/30/17 22:00 03/31/17 11:30 Ativan PO 0.5 mg BID SETH Administration Magnesium Oxide 400 mg 03/30/17 22:00 03/31/17 11:22 Mag-Ox 400 PO 400 mg BID SETH Administration Naproxen 500 mg 03/30/17 20:04 Naprosyn PO BID PRN PRN PAIN Pantoprazole Sodium 40 mg 03/31/17 10:00 03/31/17 11:23 Protonix PO 40 mg DAILY SETH Administration Ranolazine 1,000 mg 03/30/17 22:00 03/31/17 11:25 Ranexa PO 1,000 mg BID SETH Administration Sodium Chloride 5 - 30 ml 03/30/17 20:21 IV UD PRN SALINE FLUSH MRI reviewed, no acute Assessment/Plan Active and Suspected Problems TIA (transient ischemic attack) (Acute) facial numbness, tia (mri neg) vs conversion reaction vs complex migraine pt recognizes need for outpt counselling consider further migraine rx, pt considering outpt followup outpt psg/retitration
[2017-03-31 13:40] LABS: Mucous, Urine 0 SEEN /hpf (<or=2+); Red Blood Cells-Urine 0 SEEN /hpf (0-5); Squamous Epithelial Cells - UA 0 SEEN /hpf (5-10)
[2017-03-31 13:42] LABS: Color, Urine Yellow (Yellow); Glucose, Dipstick Normal (Normal); Ketone-Dipstick Negative (Negative); Leukocyte Esterase-Dipstick 100 /ul (Negative); Nitrite-Dipstick Positive (Negative); Occult Blood-Urine Negative /ul (Negative); Protein-Dipstick Negative (Negative); Urine Bilirubin Dipstick Negative (Negative); Urine Clarity Clear (Clear); Urine Urobilinogen Normal (Normal)
[2017-03-31 13:48] LABS: Bacteria 2+ /hpf (None Seen); White Blood Cells 5-10 SEEN /hpf (0-5)
--- NOTE | 2017-03-31 16:00 | PCM.DC ---
- Discharge Diagnoses Current Active Problems: Current Active and Chronic Problems TIA (transient ischemic attack) (Acute) CAD (coronary artery disease) (Chronic) You will use the following diet at home:: Cardiac Your food should be the consistency of: Regular Your liquids should be the consistency of: Regular/Thin Discharge Activity: Return to Normal Activity Allergies/Adverse Reactions: Allergies propoxyphene napsylate [From Darvocet-N 100] Allergy (Verified 12/08/16 15:33) Shortness of breath amitriptyline HCl [From Elavil] Adverse Reaction (Verified 12/08/16 15:33) SEIZURES diltiazem HCl [From Cardizem] Adverse Reaction (Verified 12/08/16 15:33) PANIC ATTACKS, CONFUSION gabapentin Adverse Reaction (Verified 03/30/17 19:21) HALLUCINATIONS ibuprofen Adverse Reaction (Verified 03/30/17 19:21) HEART PALPITATIONS isosorbide mononitrate [From Imdur] Adverse Reaction (Verified 12/08/16 15:33) MIGRAINE,VOMITING paroxetine HCl [From Paxil] Adverse Reaction (Verified 12/08/16 15:33) SEIZURES TAPE Adverse Reaction (Uncoded 12/08/16 15:33) BLISTERS Medications to take at Discharge Duloxetine Hcl [Cymbalta] 30 mg PO DAILY 05/05/13 Furosemide [Lasix] 60 mg PO DAILY 05/05/13 Garlic 1,000 mg PO QHS 05/05/13 Lisinopril [Zestril] 40 mg PO DAILY 05/05/13 Lorazepam [Ativan] 0.5 mg PO BID 05/05/13 Magnesium Oxide [Mag-Ox 400] 400 mg PO BID 05/05/13 Nitroglycerin [Nitrostat] 0.4 mg SUBLINGUAL Q5M PRN 05/05/13 Omeprazole [Prilosec] 40 mg PO DAILY 05/05/13 Aspirin [Aspirin, Baby] 81 mg PO DAILY 03/23/14 Ranolazine [Ranexa] 1,000 mg PO BID 03/24/14 Acetaminophen/Diphenhydramine [Acetaminophen Pm Caplet] 1 each PO QHS #0 06/13/14 [place]-3 Fatty Acids/Fish Oil [[place] 3 Fish Oil Softgel] 1 each PO QHS 06/13/14 Amlodipine [Norvasc] 5 mg PO DAILY 12/08/16 Carvedilol [Coreg] 12.5 mg PO BID 12/08/16 Naproxen [Naprosyn] 500 mg PO BID PRN PRN 03/30/17 Niacin 400 mg PO QHS 03/30/17 Primary Care Physician: Patric Sneed MD [Primary Care Provider] - Please follow up with your Primary Care Physician in: 1-2 weeks Please Follow Up With: Nghia Roblero MD When: 2 weeks Proposed Discharge Date: 03/31/17
--- NOTE | 2017-03-31 16:02 | PCM.DC.SUM ---
Discharge Date and Diagnosis - Problem List Patient Problems: Active and Suspected Problems TIA (transient ischemic attack) (Acute) Date of Admission: 03/30/17 Date of Discharge: 03/31/17 - Primary Discharge Diagnosis Active and Suspected Problems TIA (transient ischemic attack) (Acute) Prior CVA CAD Prinzmetal Angina HTN HLD GERD ischemic CM ZENON Fibromyalgia Anx/Dep Morbid Obesity - Secondary Discharge Diagnosis Chronic Problems Anxiety and depression (Chronic) ZENON (obstructive sleep apnea) (Chronic) Morbid obesity with BMI of 45.0-49.9, adult (Chronic) Fibromyalgia (Chronic) Hyperlipidemia (Chronic) GERD (gastroesophageal reflux disease) (Chronic) Hypertension (Chronic) Prinzmetal's angina (Chronic) hx AMI no significant CAD per pt report multiple heart cath Cerebrovascular disease or lesion (Chronic) Distal narrowing of left vertebral artery CAD (coronary artery disease) (Chronic) Hospital Course and Treatment Imaging Results: MRI/MRA Head ONLY without Contrast IMPRESSION: Nonvisualization of the right A1 segment and a markedly atretic left vertebral artery. No tumor blushes, arteriovenous malformations or aneurysms MRI/Brain without Contrast IMPRESSION: No evidence of acute infarction. A 5 mm Virchow-Brian space is in the right lentiform nucleus No intra or extra-axial hemorrhage or tumor mass. CT/Brain/Head without Contrast IMPRESSION: Chronic involutional changes. No acute intracranial processes. Stable right thalamic lacunar infarct. Echo: Interpretation Summary Mildly dilated left ventricle. The estimated ejection fraction is 45-50 %. Normal diastology for age. Basal anteroseptal: Mildly hypokinetic Mid-Anterior : Mildly hypokinetic Anterior Stacy : Hypokinetic Trivial mitral valve insufficiency. Trivial tricuspid valve insufficiency. Right ventricular systolic pressure estimated to be 35 mmHg. Compared to echo report dated 03/23/2014, no appreciable changes noted. Consults: Roblero - neuro Operations: None Procedures: 2-D Echocardiogram Summary of Care Provided: Physical exam on day of discharge: General: Resting comfortably NAD Psych: A/Ox3 normal affect HEENT: PEARRLA AT NC Neck: Supple NT CV: RRR no m/t/r/g/h Resp: CTA Abd: [id number] Soft NT no guarding or rigidity, morbid obesity Ext: DP2+= no edema Skin: W/D normal turgor Lymph/Heme: No active bleeding or adenopathy Neuro: CN2-12 intact, heel emery buffer strength 2+ and equal bilaterally, negative nystagmus, upper and lower extremity 5 out of 5 strength equal bilaterally. Good szryw-dc-nalic discrimination. Hospital course: The patient is a 67 year old F with a prior history of CVA-last TIA in 2014, who presents to the emergency room with sudden onset of right-sided facial numbness. She noticed this when she was drinking water and felt that the right side of her tongue was numb, after which she noticed her right cheek, right jaw, and right neck were also numb. No numbness in her forehead. She reported some heart palpitations at the time of the symptoms. She had the symptoms for about an hour, called the squad, and was brought to the emergency room after which symptoms resolved. She had no ataxia, slurred speech, facial droop, no focal weaknesses. As these were the same symptoms that she had when she experienced her last TIA she is admitted for possible stroke/TIA. She underwent a CT of the brain which demonstrated chronic involutional changes, no acute intracranial process, and a stable right thalamic infarct. We continued her aspirin. She had not been on a statin as she has had multiple statins in the past including Lipitor, Crestor, pravastatin, and lovastatin all which caused her severe all over body pain to the point where she could not tolerate them. She was recently prescribed a new statin different from these but she could not recall what it was, she had not started taking it yet. We strongly advised her on the need to begin taking a statin and she agreed that she would go have that prescription filled. MRI and MRA were done. MRI of the brain was negative for acute process, MRA demonstrated nonvisualization of the right A1 segment and a markedly atretic left vertebral artery. She had known distal vertebral artery stenosis. Neurology was consulted. Neurology felt that this could be a TIA or complex migraine, or conversion disorder. They recommended no changes in her medications at this time and recommended outpatient follow-up, counseling, repeat sleep study, and possible consideration of starting migraine medication. At the time of her symptoms she had also experienced some heart palpitations. We maintained her on telemetry and no abnormalities were seen. Negative EKG. I recommended that she discuss with her PCP the possibility of having a Holter monitor to be done as an outpatient. Patient remained in stable condition with no further symptoms and was discharged home to resume her current home health care. This patient was seen by Jarrett Jimenez PA-C under the supervision of Doctor Maddy. [] Discharge Diet: Low fat/ Low Cholesterol, 4000 mg Sodium Diet Discharge Activity: Return to Normal Activity Home Medications: Medications to take at Discharge Duloxetine Hcl [Cymbalta] 30 mg PO DAILY 05/05/13 Furosemide [Lasix] 60 mg PO DAILY 05/05/13 Garlic 1,000 mg PO QHS 05/05/13 Lisinopril [Zestril] 40 mg PO DAILY 05/05/13 Lorazepam [Ativan] 0.5 mg PO BID 05/05/13 Magnesium Oxide [Mag-Ox 400] 400 mg PO BID 05/05/13 Nitroglycerin [Nitrostat] 0.4 mg SUBLINGUAL Q5M PRN 05/05/13 Omeprazole [Prilosec] 40 mg PO DAILY 05/05/13 Aspirin [Aspirin, Baby] 81 mg PO DAILY 03/23/14 Ranolazine [Ranexa] 1,000 mg PO BID 03/24/14 Acetaminophen/Diphenhydramine [Acetaminophen Pm Caplet] 1 each PO QHS #0 06/13/14 [place]-3 Fatty Acids/Fish Oil [[place] 3 Fish Oil Softgel] 1 each PO QHS 06/13/14 Amlodipine [Norvasc] 5 mg PO DAILY 12/08/16 Carvedilol [Coreg] 12.5 mg PO BID 12/08/16 Naproxen [Naprosyn] 500 mg PO BID PRN PRN 03/30/17 Niacin 400 mg PO QHS 03/30/17 Primary Care Physician: Patric Sneed MD [Primary Care Provider] - Please follow up with your Primary Care Physician in: 1-2 weeks Please Follow Up With: Nghia Roblero MD When: 2 weeks Disposition: Home with Home Health Minutes spent on discharge:: 35 Patient Condition:: Stable Meaningful Use Info Meaningful Use Diagnoses (Choose all that apply): None applicable
--- NOTE | 2017-03-31 16:13 | DS.PCM_ITS ---
Discharge Date and Diagnosis - Problem List Patient Problems: Active and Suspected Problems TIA (transient ischemic attack) (Acute) Date of Admission: 03/30/17 Date of Discharge: 03/31/17 - Primary Discharge Diagnosis Active and Suspected Problems TIA (transient ischemic attack) (Acute) Prior CVA CAD Prinzmetal Angina HTN HLD GERD ischemic CM ZENON Fibromyalgia Anx/Dep Morbid Obesity - Secondary Discharge Diagnosis Chronic Problems Anxiety and depression (Chronic) ZENON (obstructive sleep apnea) (Chronic) Morbid obesity with BMI of 45.0-49.9, adult (Chronic) Fibromyalgia (Chronic) Hyperlipidemia (Chronic) GERD (gastroesophageal reflux disease) (Chronic) Hypertension (Chronic) Prinzmetal's angina (Chronic) hx AMI no significant CAD per pt report multiple heart cath Cerebrovascular disease or lesion (Chronic) Distal narrowing of left vertebral artery CAD (coronary artery disease) (Chronic) Hospital Course and Treatment Imaging Results: MRI/MRA Head ONLY without Contrast IMPRESSION: Nonvisualization of the right A1 segment and a markedly atretic left vertebral artery. No tumor blushes, arteriovenous malformations or aneurysms MRI/Brain without Contrast IMPRESSION: No evidence of acute infarction. A 5 mm Virchow-Brian space is in the right lentiform nucleus No intra or extra-axial hemorrhage or tumor mass. CT/Brain/Head without Contrast IMPRESSION: Chronic involutional changes. No acute intracranial processes. Stable right thalamic lacunar infarct. Echo: Interpretation Summary Mildly dilated left ventricle. The estimated ejection fraction is 45-50 %. Normal diastology for age. Basal anteroseptal: Mildly hypokinetic Mid-Anterior : Mildly hypokinetic Anterior [place] : Hypokinetic Trivial mitral valve insufficiency. Trivial tricuspid valve insufficiency. Right ventricular systolic pressure estimated to be 35 mmHg. Compared to echo report dated 03/23/2014, no appreciable changes noted. Consults: Roblero - neuro Operations: None Procedures: 2-D Echocardiogram Summary of Care Provided: Physical exam on day of discharge: General: Resting comfortably NAD Psych: A/Ox3 normal affect HEENT: [place] AT NC Neck: Supple NT CV: RRR no m/t/r/g/h Resp: CTA Abd: [id number] Soft NT no guarding or rigidity, morbid obesity Ext: DP2+= no edema Skin: W/D normal turgor Lymph/Heme: No active bleeding or adenopathy Neuro: CN2-12 intact, lie detector operator strength 2+ and equal bilaterally, negative nystagmus , upper and lower extremity 5 out of 5 strength equal bilaterally. Good point- to-point discrimination. Hospital course: The patient is a 67 year old F with a prior history of CVA-last TIA in 2014, who presents to the emergency room with sudden onset of right-sided facial numbness. She noticed this when she was drinking water and felt that the right side of her tongue was numb, after which she noticed her right cheek, right jaw , and right neck were also numb. No numbness in her forehead. She reported some heart palpitations at the time of the symptoms. She had the symptoms for about an hour, called the squad, and was brought to the emergency room after which symptoms resolved. She had no ataxia, slurred speech, facial droop, no focal weaknesses. As these were the same symptoms that she had when she experienced her last TIA she is admitted for possible stroke/TIA. She underwent a CT of the brain which demonstrated chronic involutional changes, no acute intracranial process, and a stable right thalamic infarct. We continued her aspirin. She had not been on a statin as she has had multiple statins in the past including Lipitor, Crestor, pravastatin, and lovastatin all which caused her severe all over body pain to the point where she could not tolerate them. She was recently prescribed a new statin different from these but she could not recall what it was, she had not started taking it yet. We strongly advised her on the need to begin taking a statin and she agreed that she would go have that prescription filled. MRI and MRA were done. MRI of the brain was negative for acute process, MRA demonstrated nonvisualization of the right A1 segment and a markedly atretic left vertebral artery. She had known distal vertebral artery stenosis. Neurology was consulted. Neurology felt that this could be a TIA or complex migraine, or conversion disorder. They recommended no changes in her medications at this time and recommended outpatient follow-up , counseling, repeat sleep study, and possible consideration of starting migraine medication. At the time of her symptoms she had also experienced some heart palpitations. We maintained her on telemetry and no abnormalities were seen. Negative EKG. I recommended that she discuss with her PCP the possibility of having a Holter monitor to be done as an outpatient. Patient remained in stable condition with no further symptoms and was discharged home to resume her current home health care. This patient was seen by Jarrett Jimenez PA-C under the supervision of Doctor Maddy. [] Discharge Diet: Low fat/ Low Cholesterol, 4000 mg Sodium Diet Discharge Activity: Return to Normal Activity Home Medications: Medications to take at Discharge Duloxetine Hcl [Cymbalta] 30 mg PO DAILY 05/05/13 Furosemide [Lasix] 60 mg PO DAILY 05/05/13 Garlic 1,000 mg PO QHS 05/05/13 Lisinopril [Zestril] 40 mg PO DAILY 05/05/13 Lorazepam [Ativan] 0.5 mg PO BID 05/05/13 Magnesium Oxide [Mag-Ox 400] 400 mg PO BID 05/05/13 Nitroglycerin [Nitrostat] 0.4 mg SUBLINGUAL Q5M PRN 05/05/13 Omeprazole [Prilosec] 40 mg PO DAILY 05/05/13 Aspirin [Aspirin, Baby] 81 mg PO DAILY 03/23/14 Ranolazine [Ranexa] 1,000 mg PO BID 03/24/14 Acetaminophen/Diphenhydramine [Acetaminophen Pm Caplet] 1 each PO QHS #0 [place]-3 Fatty Acids/Fish Oil [[place] 3 Fish Oil Softgel] 1 each PO QHS 06/13/14 Amlodipine [Norvasc] 5 mg PO DAILY 12/08/16 Carvedilol [Coreg] 12.5 mg PO BID 12/08/16 Naproxen [Naprosyn] 500 mg PO BID PRN PRN 03/30/17 Niacin 400 mg PO QHS 03/30/17 Primary Care Physician: Patric Sneed MD [Primary Care Provider] - Please follow up with your Primary Care Physician in: 1-2 weeks Please Follow Up With: Nghia Roblero MD When: 2 weeks Disposition: Home with Home Health Minutes spent on discharge:: 35 Patient Condition:: Stable Meaningful Use Info Meaningful Use Diagnoses (Choose all that apply): None applicable
--- NOTE | 2017-03-31 20:04 | MRI_ITS ---
STUDY: MRI BRAIN WITHOUT CONTRAST REASON FOR EXAM: Female, 67 years old. Sudden onset of right facial numbness and burning TECHNIQUE: Standardized multiplanar fat and water weighted pulse sequences were obtained. COMPARISON: CT brain March 30, 2017 FINDINGS: The diffusion weighted sequences failed to show any areas of restricted diffusion to suggest the presence of an acute infarct. A small 5 mm Virchow-Brian space is in the right lentiform nucleus. There is no acute hemorrhage and no intra or extra-axial tumor mass. The pituitary and pineal regions are normal. The corpus callosum and brainstem are normal. Both cerebellopontine angles are clear. The cerebellar vermis and globes are normal. The orbits, paranasal sinuses and mastoid air cells are normal. . MRI/Brain without Contrast IMPRESSION: No evidence of acute infarction. A 5 mm Virchow-Brian space is in the right lentiform nucleus No intra or extra-axial hemorrhage or tumor mass. Electronically Signed: Johny Chung, at 11:25 EST Tel , Service support ,
--- NOTE | 2017-03-31 20:04 | MRI_ITS ---
STUDY: MRA OF THE HEAD WITHOUT CONTRAST REASON FOR EXAM: Female, 67 years old. Sudden onset of right facial numbness TECHNIQUE: 3-D emyo-jl-ozuvuy (TOF) imaging was performed with MIPs. The study was performed unenhanced. COMPARISON: None. FINDINGS: Normal bilateral petrous carotid arteries. Normal right cavernous carotid artery with a normal supraclinoid bifurcation. Normal left cavernous carotid artery with a normal supraclinoid bifurcation. The right A1 segment of the anterior cerebral artery is not visualized.. Normal left A1 segments of the anterior cerebral artery. Normal intact anterior communicating artery (ACOM). Normal bilateral A2 segments of the anterior cerebral arteries. Normal right M1 and M2 segments of the middle cerebral arteries, with a normal M1 bifurcation. Normal left M1 and M2 segments of the middle cerebral arteries, with a normal M1 bifurcation. Normal right posterior communicating artery (PCOM). Normal left posterior communicating artery (PCOM). A markedly atretic left vertebral artery with a dominant right vertebral artery. The basilar artery with a normal basilar bifurcation. The visualized bilateral superior cerebellar (SCA) arteries are normal. Normal bilateral P1, P2 and visualized P3 segments of the posterior cerebral arteries. There is no demonstrated aneurysm of the [place]. There is no major vessel occlusion or hemodynamically significant stenosis. There is no demonstrated abnormality of the visualized brain. MRI/MRA Head ONLY without Contrast IMPRESSION: Nonvisualization of the right A1 segment and a markedly atretic left vertebral artery. No tumor blushes, arteriovenous malformations or aneurysms Electronically Signed: Johny Sheldon, at 11:38 EST Tel , Service support ,
--- NOTE | 2017-03-31 20:04 | MRI_ITS ---
STUDY: MRA NECK WITHOUT CONTRAST REASON FOR EXAM: Female, 67 years old. TIA. Sudden onset yesterday at 1500 of right facial numbness ,burning, tingling. Symptoms resolved now TECHNIQUE: Source images were obtained, MIPs were performed. The study was performed unenhanced. There is some motion on this exam which lowers the sensitivity to mild stenoses. COMPARISON: MRA neck March 23, 2014 FINDINGS: RIGHT CAROTID ARTERIES: Normal right common carotid artery (CCA). Normal right common carotid bulb. Normal origin of the right internal carotid (ICA) artery without a hemodynamically significant stenosis. Normal visualized cervical portion of the right internal carotid artery. Normal origin of the right external carotid artery (ECA). LEFT CAROTID ARTERIES: Normal left common carotid artery (CCA). Normal left common carotid bulb. Normal origin of the left internal carotid (ICA) artery without a hemodynamically significant stenosis. Normal visualized cervical portion of the left internal carotid artery. Normal origin of the left external carotid artery (ECA). VERTEBRAL ARTERIES: Normal antegrade flow within the bilateral vertebral artery without a hemodynamically significant stenosis. The right vertebral artery is dominant. MRI/MRA Neck without Contrast IMPRESSION: Essentially normal bilateral cervical carotid and vertebral arteries. Note that the study resolution is diminished by motion. No evident change. Electronically Signed: Ara Avitia MD at 16:58 EST Tel , Service support ,
== END 2017-03-31 16:01 | disposition home or self-care (01) ==
LOC: ED 19:07 → PCU 19:12
PROVIDERS: Internal Medicine; Admitting Provider Internal Medicine; Emergency Provider Emergency Medicine; Family Provider Family Medicine; PCP Family Medicine; Visit Provider Internal Medicine
DX: G45.9 Transient cerebral ischemic attack, unspecified (principal); G47.33 Obstructive sleep apnea (adult) (pediatric); K21.9 Gastro-esophageal reflux disease without esophagitis; I10 Essential (primary) hypertension; I25.10 Atherosclerotic heart disease of native coronary artery without angina pectoris; M79.7 Fibromyalgia; Z23 Encounter for immunization; E78.5 Hyperlipidemia, unspecified; F41.9 Anxiety disorder, unspecified; F32.9 Major depressive disorder, single episode, unspecified; M48.00 Spinal stenosis, site unspecified; G89.29 Other chronic pain; E66.01 Morbid (severe) obesity due to excess calories; I25.2 Old myocardial infarction; Z68.42 Body mass index [BMI] 45.0-49.9, adult; Z71.3 Dietary counseling and surveillance; Z86.73 Personal history of transient ischemic attack (TIA), and cerebral infarction without residual deficits; Z79.899 Other long term (current) drug therapy; Z79.82 Long term (current) use of aspirin; Z87.891 Personal history of nicotine dependence
CPT/HCPCS: 36415; 70450; 70544; 70547; 70551; 80048; 80061; 81001; 82962; 84443; 84484; 85025; 85610; 85730; 92526; 92610; 93005; 93306; 96372; 97166; 99218; 99285; J7030; 90686; A4216; G0378

== ENCOUNTER 2019-10-01 02:40 | Observation (INO) | payer MEDICARE, MEDICAID, SELFPAY ==
[2019-02-05 12:38] VITALS: BMI 42.3
[2019-10-01] VITALS (13 sets, daily range): BP systolic 116–152; BP diastolic 41–69; PULSE 59–69; RESP 15–21; TEMP 36.1–36.8; O2SAT 95–99; BMI 38.0; BMI 43.1; BMI 42.0
--- NOTE | 2019-10-01 02:40 | RAD_ITS ---
STUDY: X-RAY CHEST REASON FOR EXAM: Female, 69 years old. MEDIASTINAL EVAL -- NEURO SX TECHNIQUE: Single AP portable view of the chest. COMPARISON: 06/13/2014 chest x-ray FINDINGS: The lungs are clear and expanded. There is no demonstrated pleural abnormality. There is moderate cardiac enlargement. Normal mediastinum and ritu. Normal visualized pulmonary arteries. Normal visualized aortic arch and descending thoracic aorta. There are diffuse degenerative changes of the visualized thoracic spine. Normal visualized ribs, clavicles, and shoulders. There is no demonstrated abnormality of the visualized soft tissue structures of the upper abdomen. RAD/Chest 1 View IMPRESSION: Cardiomegaly. No visualized focal infiltrate. Electronically Signed: Ethel Vizcarra MD at 4:32 EDT Tel , Service support ,
--- NOTE | 2019-10-01 02:40 | CT_ITS ---
STUDY: CT BRAIN WITHOUT CONTRAST REASON FOR EXAM: Female, 69 years old. CVA,woke up with aphasia -- hx:cva RADIATION DOSAGE (If Supplied By Facility): CTDIvol = ( 44.99 ) mGy, DLP = ( 779.24 ) mGycm TECHNIQUE: Transaxial CT imaging of the brain was performed without administration of intravenous contrast material. Individualized dose optimization techniques were used for this CT. COMPARISON: 03/30/2017 CT head FINDINGS: Normal soft tissue structures. Normal calvarium. There is mild cerebral atrophy with widening of the extra-axial spaces and ventricular dilatation. Normal white matter tracts of the cerebral hemispheres. There is a punctate focus of low attenuation within the right-sided basal ganglia compatible with prior lacunar infarct. Normal brainstem. Normal cerebellum. There is no intracranial hemorrhage. There are no findings of an acute ischemic infarction. Normal visualized paranasal sinuses. There is calcification of the left-sided cavernous carotid arteries compared to the right. CT/Brain/Head without Contrast IMPRESSION: Minimal atrophy no evidence of acute hemorrhage infarct or edema. N.B. : The above information has been verbally conveyed by Ethel Vizcarra MD to Dr. Tao Gibson MD, on 10/01/2019 03:01:36 (ET). Electronically Signed: Ethel Vizcarra MD at 3:02 EDT Tel , Service support ,
--- NOTE | 2019-10-01 02:40 | EKG12_ITS ---
Test Reason : STROKE Blood Pressure : / mmHG Vent. Rate : 067 BPM Atrial Rate : 067 BPM P-R Int : 192 ms QRS Dur : 160 ms QT Int : 450 ms P-R-T Axes : 072 -32 116 degrees QTc Int : 475 ms Normal sinus rhythm Left axis deviation Left bundle branch block Abnormal ECG Confirmed by CRISTIANO CROCKER ([id number]), manager editorial NETTE WALLACE ([id number]) on 10/02/2019 11:12:35 AM Referred By: Marissa Reyes Confirmed By:CRISTIANO CROCKER
--- NOTE | 2019-10-01 02:42 | CT_ITS ---
STUDY: CTA HEAD AND NECK WITH CONTRAST REASON FOR EXAM: Female, 69 years old. APHASIA -- hx:cva,htn,cad RADIATION DOSAGE (If Supplied By Facility): CTDIvol = ( 22.09 ) mGy, DLP = ( 664.78 ) mGycm TECHNIQUE: CT angiography was performed with a multi-detector CT scanner. Data acquisition was obtained from the skull base through the vertex following intravenous administration of IV 100mL [id number]-[id number]. MIP images were reconstructed from the axial data set. Post-processing of the angiographic images was performed, with multiplanar reformation and 3D reconstruction. Individualized dose optimization techniques were used for this CT. COMPARISON: CT head 10/01/2019, 03/30/2017, 03/31/2017 MRI brain MRI/MRA 03/31/2017 FINDINGS: Normal bilateral petrous carotid arteries. Normal right cavernous carotid artery with a normal supraclinoid bifurcation. There is calcified plaque formation of the left cavernous carotid artery, without a cross-sectional luminal stenosis. There is non-visualization of the right A1 segment of the anterior cerebral arteries consistent with either aplastic development or an occlusion. Aplastic development is favored given that the right-sided A2 extends from the left side A1 stable since prior study 03/31/2017 MRI. Normal left A1 segments of the anterior cerebral artery. Normal intact anterior communicating artery (ACOM). Normal bilateral A2 segments of the anterior cerebral arteries. Normal right M1 and M2 segments of the middle cerebral arteries, with a normal M1 bifurcation. There is a visualized left side superior branch left MCA artery. The region of the left side frontal parietal region shows lesser contrasted vessels than the right which is a nonspecific finding and also suggested on the prior study.. Normal left M1 and M2 segments of the middle cerebral arteries, with a normal M1 bifurcation. There is a persistent origin of the right posterior cerebral artery with absence of the posterior communicating artery (PCOM). Normal left posterior communicating artery (PCOM). There is a small atretic left vertebral artery with a dominant right vertebral artery. Normal basilar artery with a normal basilar bifurcation. There is a dominant dolichoectatic appearance of the right-sided vertebral artery. Normal bilateral P1, P2 and visualized P3 segments of the posterior cerebral arteries. There is no demonstrated aneurysm of the [place] of [place]. At the time of this study there is no definitive asymmetric focus of low attenuation and no visualized evidence of an acute hemorrhage. AORTIC ARCH: There is a bovine origin of the great vessels arising from the aortic arch with a common origin of the brachiocephalic and left common carotid artery. Normal origin of the left subclavian artery. Is partial calcification of the aortic arch. Distal to the subclavian. RIGHT CAROTID ARTERIES: There is atherosclerotic tortuous elongation of the right common carotid artery. There is mild atherosclerotic plaque formation with minimal narrowing of the right carotid bulb. Normal origin of the right internal carotid (ICA) artery without a hemodynamically significant stenosis. Normal visualized cervical portion of the right internal carotid artery. Normal origin of the right external carotid artery (ECA). LEFT CAROTID ARTERIES: Normal left common carotid artery (CCA). Normal left common carotid bulb. Normal origin of the left internal carotid (ICA) artery without a hemodynamically significant stenosis. There is atherosclerotic tortuous elongation of the cervical portion of the left internal carotid artery. Normal origin of the left external carotid artery (ECA). VERTEBRAL ARTERIES: There is a dominant dolichoectatic appearance of the right-sided vertebral artery with compared to the left without stenosis. There is degenerative change within the cervical spine. There is multilevel facet arthropathy with multilevel [id number] neural foramina narrowing. There is a visualized enlarged lobulated appearing thyroid gland with multiple low attenuating nodules the largest on the right measuring 1.1 cm the largest on the left measuring [address]/CTA Head AND Neck W/ Contrast IMPRESSION: Anatomic variation right anterior circulation as detailed above stable since prior study. Nonspecific lesser stable vascular appearance of the left side frontoparietal white matter, distal M3 territory compared to the right without evidence of focal edema . Minimal calcification of the left carotid artery without stenosis. Trace calcification of the right side carotid bulb without significant rate limiting stenosis. Mildly enlarged inhomogeneous thyroid gland. Consider follow-up thyroid ultrasound laboratory values when appropriate. Multilevel degenerative changes of the cervical spine multilevel spondylosis neural foramina narrowing. Recommend consideration for follow-up MRI when clinically appropriate. N.B. : The above information has been verbally conveyed by Ethel Vizcarra MD to Dr. Tao Gibson MD, on 10/01/2019 03:23:40 (ET). Electronically Signed: Ethel Vizcarra MD at 3:24 EDT Tel , Service support ,
--- NOTE | 2019-10-01 02:42 | ED.DCSUM_ITS ---
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 She last went to bed at 2200 without the symptoms. She is on no anticoagulants, she does take a baby aspirin daily. She has a history of coronary disease, and a prior stroke. No recent head injury. No chest pain. No recent illnesses. Her last stroke/TIA was not this year, see suggest that it was a receptive aphasia and had no permanent residual deficits. - Past Medical History (1) Essential (primary) hypertension Status: Chronic (2) Hyperlipidemia Status: Chronic (3) Left bundle branch block (LBBB) Status: Chronic (4) TIA (transient ischemic attack) Status: Chronic (5) History of non-ST elevation myocardial infarction (NSTEMI) Status: Resolved Past Medical History - Allergies and Home Meds Allergies/Adverse Reactions: Allergies propoxyphene napsylate [From Darvocet-N 100] Allergy (Verified 12/08/16 15:33) Shortness of breath amitriptyline HCl [From Elavil] Adverse Reaction (Verified 12/08/16 15:33) SEIZURES diltiazem HCl [From Cardizem] Adverse Reaction (Verified 12/08/16 15:33) PANIC ATTACKS, CONFUSION gabapentin Adverse Reaction (Verified 03/30/17 19:21) HALLUCINATIONS ibuprofen Adverse Reaction (Verified 03/30/17 19:21) HEART PALPITATIONS isosorbide mononitrate [From Imdur] Adverse Reaction (Verified 12/08/16 15:33) MIGRAINE,VOMITING paroxetine HCl [From Paxil] Adverse Reaction (Verified 12/08/16 15:33) SEIZURES TAPE Adverse Reaction (Uncoded 12/08/16 15:33) BLISTERS Primary Care Physician: Norma Han MD [Primary Care Provider] - Surgical History: - - Abdominal tumor expiratory laparotomy, hysterectomy, cervical cancer laser surgery, several ovarian cyst removals, right-sided hip replacement Lives: Spouse/ Significant Other Smoking Status: Former smoker - Family History Maternal Family History: Family History (Last Reviewed 02/05/19 @ 15:[address] Noel Mcdonald MD) Father Heart disease Cancer Mother Heart disease Cancer Family History: Reports: Cancer, Heart Disease, Hypertension Paternal Family History: Family History (Last Reviewed 02/05/19 @ 15:[address] Noel Mcdonald MD) Father Heart disease Cancer Mother Heart disease Cancer Family History: Reports: Cancer, Heart Disease, Hypertension Review of Systems General: Denies: Chills, Fever, Sweats Eyes: Denies: Visual changes - bilaterally, Diplopia ENT: Denies: Rhinorrhea, Sore throat Cardiovascular: Denies: Chest pain, Palpitations Respiratory: Denies: Dyspnea, Cough, Dyspnea on exertion Gastrointestinal: Denies: Abdominal pain, Nausea, Vomiting, Diarrhea, Melena, Hematochezia Genitourinary: Denies: Dysuria, Hematuria, Frequency Musculoskeletal: Denies: Back pain, Extremity Pain Skin: Denies: Rash, Wounds Neurological: Reports: - - trouble speaking. Denies: Headache, Weakness, Numbness STROKE Inital Vital Signs reviewed: Yes - NIHSS Initial 1a Level of Consciousness: 0 1b LOC Questions (Score 2 if aphasic/stupor): 0 1c LOC Commands (Only score 1st attempt): 0 2 Best Gaze (If aphasic, use reflexive mvmts.): 0 3 Visual: 0 4 Facial Palsy: 0 5 Motor Arm Right (UN = amputation/fusion): 0 5 Motor Arm Left: 0 6 Motor Leg Right: 0 6 Motor Leg Left: 0 7 Limb ataxia (Only + if out of proportion): 0 8 Sensory (Aphasia/stupor=0 or 1, coma=2): 0 9 Best Language: 1 10 Dysarthria (mute, coma=2, intubated=UN): 1 11 Extinction and Inattention (only scored if +): 0 Total Score: 2 General: Well nourished, Well developed, - - NAD. alert. Head: Normocephalic, Atraumatic Eyes: Perrl, EOMI ENT: Moist mucous membranes, No rhinorrhea Neck: Supple, Nontender Cardiovascular: Regular rate, Regular rhythm, No murmurs Respiratory: No distress, CTA bilaterally, Chest nontender Abdomen: Soft, Nontender, Nondistended, Normal bowel sounds Back: Nontender, Normal Inspection Extremities: Nontender, No edema. Negative for: Calf Tenderness Skin: Normal color, No rash, No Trauma Neurological: Alert, Oriented x3 - including month, pt's age, Cranial nerves II- XII grossly intact, Normal Strength, Normal Sensation, - - mild expressive aphasia Psychological: Tearful - and anxious - I'm scared Diagnostic/Tx/Re-eval Impressions Brain CT 10/01/19 02:40 IMPRESSION: Minimal atrophy no evidence of acute hemorrhage infarct or edema. N.B. : The above information has been verbally conveyed by Ethel Vizcarra MD to Dr. Tao Gibson MD, on 10/01/2019 03:01:36 (ET). Electronically Signed: Ethel Vizcarra MD at 3:02 EDT Tel , Service support , ADDENDUM: 10/01/19 0309 IMPRESSION: Minimal atrophy no evidence of acute hemorrhage infarct or edema. N.B. : The above information has been verbally conveyed by Ethel Vizcarra MD to Dr. Tao Gibson MD, on 10/01/2019 03:01:36 (ET). Electronically Signed: Ethel Vizcarra MD at 3:02 EDT Tel , Service support , Head/Neck CTA 10/01/19 02:42 IMPRESSION: Anatomic variation right anterior circulation as detailed above stable since prior study. Nonspecific lesser stable vascular appearance of the left side frontoparietal white matter, distal M3 territory compared to the right without evidence of focal edema . Minimal calcification of the left carotid artery without stenosis. Trace calcification of the right side carotid bulb without significant rate limiting stenosis. Mildly enlarged inhomogeneous thyroid gland. Consider follow-up thyroid ultrasound laboratory values when appropriate. Multilevel degenerative changes of the cervical spine multilevel spondylosis neural foramina narrowing. Recommend consideration for follow-up MRI when clinically appropriate. N.B. : The above information has been verbally conveyed by Ethel Vizcarra MD to Dr. Tao Gibson MD, on 10/01/2019 03:23:40 (ET). Electronically Signed: Ethel Vizcarra MD at 3:24 EDT Tel , Service support , 10/01/19 02:40 Brain/Head without Contrast [CT] Stat Chest 1 View [RAD] Stat 10/01/19 02:42 CTA Head AND Neck W/ Contrast [CT] Stat Laboratory Results 10/01/19 10/01/19 10/01/19 02:32 02:32 02:32 WBC 6.7 RBC 3.60 L Hgb 11.4 L Hct 35.5 L MCV 98.6 MCH 31.7 MCHC 32.1 RDW Std Deviation 48.1 H RDW Coeff of Kesha 13.3 Plt Count 194 MPV 11.9 Immature Gran % (Auto) 0.300 Neut % (Auto) 46.6 L Lymph % (Auto) 39.9 [place] % (Auto) 11.5 H Eos % (Auto) 1.3 Baso % (Auto) 0.4 Absolute Neuts (auto) 3.1 Absolute Lymphs (auto) 2.68 Nucleated RBC % 0 PT 12.7 INR 1.0 APTT 27.3 Sodium 141 Potassium 4.3 Chloride 108 H Carbon Dioxide 29.0 Anion Gap 4 L BUN 26 H Creatinine 1.01 Estim Creat Clear Calc 40.23 Est GFR (MDRD) Af Amer 70 Est GFR (MDRD) Non-Af 58 L BUN/Creatinine Ratio 25.7 H Glucose 96 Calcium 8.8 Troponin I < 0.015 - Rhythm Strip Rhythm Strip: Sinus Rhythm Rate: 65 Ectopy: None - EKG Initial EKG Interpretation: Sinus Rhythm, No Acute Injury Pattern, LBBB Prior: Unchanged - Medical Decision Making Stroke Team Activated: Yes - prehospital Was Patient considered for Endovascular Intervention?: No - neg CTA IV Alteplase (t-PA) Administered: No - out of 4.5 hr window upon ED arrival Patient presenting with cortical findings clinically, but arriving outside of the window for TPA according to her last known well. Therefore patient was sent directly CT from the ambulance bay, and CT angiography was obtained simultaneously. The plain CT shows nothing acute and no hemorrhage. Discussed with Dr. Gruber with tele-neurology at [facility], who agrees with admission and further work-up if CTA negative for LVO, which it is. Discussed with hospitalist for PCU admission. ED Disposition - Plan for ED Patient: Disposition: Acute Care Hospital [facility] Diagnosis: Acute ischemic stroke Referrals: Norma Han MD [Primary Care Provider] -
[2019-10-01 02:56] LABS: Absolute Lymphocyte Count 2.68 X10^3/uL (0.83-4.51); Absolute Neutrophil Count 3.1 X10^3/uL (2.0-7.7); Basophil# 0.03 X10^3/uL; Basophil% 0.4 % (0-1); Eosinophil# 0.09 X10^3/uL; Eosinophils% 1.3 % (0-5); Hematocrit 35.5 % (37-47); Hemoglobin 11.4 g/dL (12.0-15.0); Lymphocyte # 2.68 X10^3/ul (4.0); Lymphocyte % 39.9 % (19-41); Mean Corp Hgb Conc 32.1 g/dL (32-36); Mean Corpuscular Hgb 31.7 pg (27.0-32.0); Mean Corpuscular Volume 98.6 fL (81-99); Mean Platelet Vol. 11.9 fl (6.2-12.0); Monocyte# 0.77 X10^3/uL; Monocyte% 11.5 % (0-10); NRBC Flagged by Analyzer 0 % (0-5); Neutrophil # 3.12 X10^3/uL (2.7-7.7); Neutrophil % 46.6 % (47-70); Platelet Count 194 K/mm3 (150-450); RBC Distribution Width CV 13.3 % (11.6-14.6); RBC Distribution Width SD 48.1 fl (35.1-43.9); White Blood Count 6.7 K/mm3 (4.4-11.0)
[2019-10-01 03:03] LABS: Partial Thromboplast Time 27.3 Seconds (24.1-36.2); Prothrombin Time (Protime)PT. 12.7 SECONDS (11.7-14.9)
[2019-10-01 03:13] LABS: Anion Gap 4 (5-15); BUN 26 mg/dL (7-18); BUN/Creat Ratio 25.7 RATIO (10-20); Calcium,Total 8.8 mg/dL (8.5-10.1); Chloride 108 mmol/L (98-107); Creatinine, Serum 1.01 mg/dL (0.55-1.02); EST Glomerular Filtration Rate 58 mL/min (>60); Est Glom Filt Rate - Afr Amer 70 mL/min (>60); Estimated Creatinine Clearance 40.23 ml/min; Glucose 96 mg/dL (74-106); Potassium 4.3 mmol/L (3.5-5.1); Sodium Level 141 mmol/L (136-145)
[2019-10-01] MEDS: 0.9% Normal Saline 1,000 ML 100 ML IV (03:13)
--- NOTE | 2019-10-01 03:34 | HP.PCM_ITS ---
History of Present Illness Date of Admission: 10/01/19 Chief Complaint: difficulty speaking The patient is a 69 year old F with a past medical history as outlined. Her last known well was around 10 PM of 09/30/2019 when she went to bed. She woke up at around 2 AM and realized that she was having difficulty seeing what she wanted to say. She also felt very weak and confused. She denied any blurred vision or focal weakness, numbness or tingling but admitted to increased tinnitus in both ears. She says she knew what she wanted to say but could not figure out how to bring it out. Her symptoms persisted so she called the EMS because she was concerned she was having a stroke. She does not have any hist ory of arrhythmias and is not on any anticoagulants. 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 She last had a TIA in 2008 and says she has been fired since then. CT of the brain showed no acute infarct or hemorrhage. CTA of the head and neck showed an acute anatomic variation right ventricular circulation which was stable since previous study and no nonspecific lesser stable vascular appearance of the left side frontoparietal white matter with a distal M3 territory compared to the right without evidence of focal edema. EKG done showed normal sinus rhythm with left bundle branch block. She has been admitted to be managed for TIA. NIH stroke scale done on admission the ED was 2. Tele-stroke consult was done with [facility] and was determined the patient was out of window for TPA. [] Past Medical History Past Medical History (Chronic Problems): Chronic Problems (Last Reviewed 02/05/19 @ 15:[address] Noel Mcdonald MD) Prinzmetal's angina (Chronic) Left bundle branch block (LBBB) (Chronic) Essential (primary) hypertension (Chronic) Hyperlipidemia (Chronic) TIA (transient ischemic attack) (Chronic) Medical History: Medical History (Last Reviewed 02/05/19 @ 15:[address] Noel Mcdonald MD) Prinzmetal's angina (Chronic) I20.1 Left bundle branch block (LBBB) (Chronic) I44.7 Essential (primary) hypertension (Chronic) I10 Hyperlipidemia (Chronic) E78.5 TIA (transient ischemic attack) (Chronic) G45.9 History of non-ST elevation myocardial infarction (NSTEMI) (Resolved) I25.2 Anxiety and depression Cerebrovascular disease or lesion I67.9 Distal narrowing of left vertebral artery Fibromyalgia GERD (gastroesophageal reflux disease) K21.9 Morbid obesity with BMI of 45.0-49.9, adult E66.01, Z68.42 ZENON (obstructive sleep apnea) G47.33 Allergies propoxyphene napsylate [From Darvocet-N 100] Allergy (Verified 12/08/16 15:33) Shortness of breath amitriptyline HCl [From Elavil] Adverse Reaction (Verified 12/08/16 15:33) SEIZURES diltiazem HCl [From Cardizem] Adverse Reaction (Verified 12/08/16 15:33) PANIC ATTACKS, CONFUSION gabapentin Adverse Reaction (Verified 03/30/17 19:21) HALLUCINATIONS ibuprofen Adverse Reaction (Verified 03/30/17 19:21) HEART PALPITATIONS isosorbide mononitrate [From Imdur] Adverse Reaction (Verified 12/08/16 15:33) MIGRAINE,VOMITING paroxetine HCl [From Paxil] Adverse Reaction (Verified 12/08/16 15:33) SEIZURES TAPE Adverse Reaction (Uncoded 12/08/16 15:33) BLISTERS Home Medications: Ambulatory Orders Medication Instructions Recorded Duloxetine Hcl [Cymbalta] 30 mg PO DAILY 05/05/13 Furosemide [Lasix] 60 mg PO DAILY 05/05/13 Garlic 1,000 mg PO QHS 05/05/13 Lisinopril [Zestril] 40 mg PO DAILY 05/05/13 Lorazepam [Ativan] 0.5 mg PO BID 05/05/13 Magnesium Oxide [Mag-Ox 400] 400 mg PO BID 05/05/13 Nitroglycerin (INPATIENT USE) 0.4 mg SUBLINGUAL Q5M PRN 05/05/13 [Nitrostat] Omeprazole [Prilosec] 40 mg PO DAILY 05/05/13 Aspirin [Aspirin, Baby] 81 mg PO DAILY 03/23/14 Ranolazine [Ranexa] 1,000 mg PO BID 03/24/14 Acetaminophen/Diphenhydramine 1 ea PO QHS #0 06/13/14 [Acetaminophen Pm Caplet] [place]lain-3 Fatty Acids/Fish Oil 1 ea PO QHS 06/13/14 [[place]lain 3 Fish Oil Softgel] Amlodipine [Norvasc] 5 mg PO DAILY 12/08/16 Carvedilol [Coreg] 12.5 mg PO BID 12/08/16 Naproxen [Naprosyn] 500 mg PO BID PRN PRN 03/30/17 Niacin 400 mg PO QHS 03/30/17 Surgical History: Surgical History (Last Reviewed 02/05/19 @ 15:[address] 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 Noel Mcdonald MD) Father Heart disease Cancer Mother Heart disease Cancer History Items: Cancer, Heart Disease, Hypertension Paternal Family History: Family History (Last Reviewed 02/05/19 @ 15:[address] Noel Mcdonald MD) Father Heart disease Cancer Mother Heart disease Cancer History Items: Cancer, Heart Disease, Hypertension Review of Systems Constitutional: Denies: Chills, Fever, Malaise, Weakness, Weight Change Eyes: Denies: Blurred vision, Double vision, Vision Change HEENT: Reports: Hard of Hearing. Denies: Dysphasia, Head Aches, Sinus Congestion, Sinus Drainage, Visual Changes Cardiovascular: Denies: Chest Pain, Palpitations Respiratory: Denies: Cough, Shortness of Breath, Shortness of breath at rest, Sputum production Gastrointestinal: Denies: Abdominal Pain, Nausea, Vomiting Genitourinary: Denies: Dysuria Musculoskeletal: Denies: Joint Pain, Joint Tenderness Skin: Denies: Rash, Wounds Neurological: Reports: Change in Speech, Confusion, - - tinnitus. Denies: Balance problems, Blurred vision, Double vision, Slurred speech, Difficulty swallowing, Focal weakness, Numbness, Tingling Psychiatric: Denies: Anxiety, Depression, Homicidal Ideations, Suicidal Ideations Hematologic/ Lymphatic: Denies: Easy Bruising, Easy Bleeding VTE Information - Inpt Only VTE Present on Admission: No VTE Pharm Prophylaxis ordered?: Yes Patient Problems: Active and Suspected Problems (Last Reviewed 02/05/19 @ 15:[address] Noel Mcdonald MD) Acute ischemic stroke (Acute) - Physical Exam Vitals/I&O's: Vital Signs Temp Pulse Resp BP Pulse Ox 97.1 F L 69 15 119/62 99 10/01/19 02:59 10/01/19 03:31 10/01/19 03:31 10/01/19 03:31 10/01/19 03:31 Oxygen Delivery Method Room Air Weight: 228 lb 6.382 oz Body Mass Index (BMI) 43.1 Finger Stick Blood Glucose 101 General: Alert, Oriented x3, Cooperative, No apparent distress HEENT: Atraumatic, PERRLA, EOMI, Normocephalic Oral: Dry Mucosa Neck: Supple, No JVD, Negative Carotid Bruits Lungs: Clear to auscultation, Normal air movement, No rhonchi, No wheeze, No rales Cardiovascular: Regular rate, Regular Rhythm, Normal S1, Normal S2, No murmurs Abdomen: Bowel Sounds Present, Soft, Non Tender, Non-Distended, No Hepato- splenomegaly Extremities: No clubbing, No cyanosis, No edema, Capillary Refill Less than 3 Seconds Skin: No rashes, No breakdown Musculoskeletal: No Tenderness to Palpation of Joints or Extremities Lymphatic: No Cervical, Supraclavicular, or Inguinal Adenopathy Neurological: Cranial nerves II-XII grossly intact, Deep Tendon Reflexes 2+/4 and Symmetrical, Neuro grossly intact, Motor Exam 5/5 strength throughout, - - NIHSS is 0 Psych/Mental Status: Anxious, Alert and oriented to time, place, person, mood and affect Laboratory Results 10/01/19 02:32: WBC 6.7, RBC 3.60 L, Hgb 11.4 L, Hct 35.5 L, MCV 98.6, MCH 31.7, MCHC 32.1, RDW Std Deviation 48.1 H, RDW Coeff of Kesha 13.3, Plt Count 194, MPV 11.9, Immature Gran % (Auto) 0.300, Neut % (Auto) 46.6 L, Lymph % (Auto) 39.9, [place] % (Auto) 11.5 H, Eos % (Auto) 1.3, Baso % (Auto) 0.4, Absolute Neuts (auto) 3.1, Absolute Lymphs (auto) 2.68, Nucleated RBC % 0 10/01/19 02:32: PT 12.7, INR 1.0, APTT 27.3 10/01/19 02:32: Sodium 141, Potassium 4.3, Chloride 108 H, Carbon Dioxide 29.0, Anion Gap 4 L, BUN 26 H, Creatinine 1.01, Estim Creat Clear Calc 40.23, Est GFR (MDRD) Af Amer 70, Est GFR (MDRD) Non-Af 58 L, BUN/Creatinine Ratio 25.7 H, Glucose 96, Calcium 8.8, Troponin I < 0.[address] 10/01/19 02:40 IMPRESSION: Minimal atrophy no evidence of acute hemorrhage infarct or edema. N.B. : The above information has been verbally conveyed by Ethel Vizcarra MD to Dr. Tao Gibson MD, on 10/01/2019 03:01:36 (ET). Electronically Signed: Ethel Vizcarra MD at 3:02 EDT Tel , Service support , ADDENDUM: 10/01/19 0309 IMPRESSION: Minimal atrophy no evidence of acute hemorrhage infarct or edema. N.B. : The above information has been verbally conveyed by Ethel Vizcarra MD to Dr. Tao Gibson MD, on 10/01/2019 03:01:36 (ET). Electronically Signed: Ethel Vizcarra MD at 3:02 EDT Tel , Service support , Head/Neck CTA 10/01/19 02:42 IMPRESSION: Anatomic variation right anterior circulation as detailed above stable since prior study. Nonspecific lesser stable vascular appearance of the left side frontoparietal white matter, distal M3 territory compared to the right without evidence of focal edema . Minimal calcification of the left carotid artery without stenosis. Trace calcification of the right side carotid bulb without significant rate limiting stenosis. Mildly enlarged inhomogeneous thyroid gland. Consider follow-up thyroid ultrasound laboratory values when appropriate. Multilevel degenerative changes of the cervical spine multilevel spondylosis neural foramina narrowing. Recommend consideration for follow-up MRI when clinically appropriate. N.B. : The above information has been verbally conveyed by Ethel Vizcarra MD to Dr. Tao Gibson MD, on 10/01/2019 03:23:40 (ET). Electronically Signed: Ethel Vizcarra MD at 3:24 EDT Tel , Service support , ADDENDUM: 10/01/19 0331 IMPRESSION: Anatomic variation right anterior circulation as detailed above stable since prior study. Nonspecific lesser stable vascular appearance of the left side frontoparietal white matter, distal M3 territory compared to the right without evidence of focal edema . Minimal calcification of the left carotid artery without stenosis. Trace calcification of the right side carotid bulb without significant rate limiting stenosis. Mildly enlarged inhomogeneous thyroid gland. Consider follow-up thyroid ultrasound laboratory values when appropriate. Multilevel degenerative changes of the cervical spine multilevel spondylosis neural foramina narrowing. Recommend consideration for follow-up MRI when clinically appropriate. N.B. : The above information has been verbally conveyed by Ethel Vizcarra MD to Dr. Tao Gibson MD, on 10/01/2019 03:23:40 (ET). Electronically Signed: Ethel Vizcarra MD at 3:24 EDT Tel , Service support , Current Medications Sodium Chloride () 1,000 mls @ 100 mls/hr IV .Q10H ONE Stop: 10/01/19 12:40 Last Admin: 10/01/19 03:13 Dose: 100 mls/hr Documented by: Sodium Chloride 1,000 ml/ N/A 1,000 mls @ 103.6 mls/hr IV .Q9H40M SETH Stop: 10/02/19 02:46 Last Admin: 10/01/19 03:06 Dose: Not Given Documented by: Labetalol HCl (Trandate) 20 mg IV X1 PRN PRN Reason: BLOOD PRESSURE Assessment/Plan All Active Problems (Last Reviewed 02/05/19 @ 15:[address] Noel Mcdonald MD) Acute ischemic stroke (Acute) History of non-ST elevation myocardial infarction (NSTEMI) (Resolved) 69 y/o female admitted with a complaint of expressive aphasia which subsequently resolved. 1. TIA * Expressive aphasia had resolved at time of review. NIH stroke scale was 2 on admission but was 0 at time of review. * CT of the brain showed no evidence of acute intracranial infarct or hemorrhage and CTA of the head and neck showed multilevel degenerative changes of the cervical spine multilevel spondylosis with neuroforaminal narrowing and anatomic variation of the anterior right circulation which are stable since previous study, with minimal calcification of the left carotid artery without stenosis. * Admit to PCU with telemetry. * To neurochecks as per TIA protocol * Get MRI of the brain in the morning and 2D echo. Consult neurology. Start on aspirin 81 mg daily and statin 40 mg nightly. * Likely need 30-day event monitor to monitor for any arrhythmias. * EKG showed normal sinus rhythm with old left bundle branch block. * 2. Benign essential hypertension: Fairly well controlled. On amlodipine and lisinopril as well as carvedilol. 3. ZENON: On CPAP nightly 4. Hyperlipidemia:: On statin 5. Fibromyalgia: On Cymbalta 6. GERD: On omeprazole. DVT prophylaxis: SCDs CODE STATUS: Full code * Patient counseled extensively about different types of CODE STATUS including full code, DNR CCA and DNR CCA. * Patient elects to be full code. * Total rqbb-ob-[id number] time 16 minutes. OBSV E&M: 55839 Initial observation care L2 Procedures: 59987 Advncd Care Plan 30 Min
--- NOTE | 2019-10-01 04:40 | MRI_ITS ---
STUDY: MRI BRAIN WITHOUT CONTRAST REASON FOR EXAM: Female, 69 years old patient with aphasia and confusion. TECHNIQUE: Standardized multiplanar fat and water weighted pulse sequences were obtained. COMPARISON: None. FINDINGS: There is mild cerebral atrophy with widening of the extra-axial spaces and ventricular dilatation. There are a limited number of small white matter hyperintensities, distributed throughout the deep white matter tracts of the cerebral hemispheres, consistent with mild chronic white matter ischemic changes. There is no evidence for recent intracranial ischemia or other cause of cytotoxic edema on diffusion weighted imaging (DWI). Normal T2* images of the brain without demonstrated susceptibility artifact. There is no demonstrated hemosiderin stain. There are prominent perivascular spaces (PVS) involving the basal ganglia. Normal thalami. There is no extra-axial fluid accumulation. Normal flow voids within the major intracranial circulation suggesting patency by spin echo criteria. Normal sella turcica, infundibular stalk, optic chiasm and hypothalamus. 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 This is larger than it was on the previous MRI. Normal tectal plate and pineal gland. Normal midbrain, eduard and medulla. Normal cerebellum. Normal basal cisterns. Normal bilateral temporal bones. Normal bilateral internal auditory canals. No demonstrated orbital abnormality, within the constraints of a routine brain study. There is a small mucous retention cyst in the right maxillary sinus. Normal calvarium and skull base. Normal visualized soft tissue structures. Normal visualized upper cervical spine. MRI/Brain without Contrast IMPRESSION: 1. Involutional changes of the brain, as described above. 2. Enlarging cystic lesion within the pituitary. 3. No MR evidence for acute infarct. Electronically Signed: Liz England MD at 10:07 EDT , Service support ,
[2019-10-01 05:07] LABS: Absolute Neutrophil Count 2.7 X10^3/uL (2.0-7.7); Basophil# 0.02 X10^3/uL; Basophil% 0.4 % (0-1); Eosinophil# 0.07 X10^3/uL; Eosinophils% 1.4 % (0-5); Hematocrit 34.2 % (37-47); Hemoglobin 10.9 g/dL (12.0-15.0); Lymphocyte % 30.1 % (19-41); Mean Corp Hgb Conc 31.9 g/dL (32-36); Mean Corpuscular Hgb 32.1 pg (27.0-32.0); Mean Corpuscular Volume 100.6 fL (81-99); Mean Platelet Vol. 11.6 fl (6.2-12.0); Monocyte# 0.63 X10^3/uL; Monocyte% 12.7 % (0-10); NRBC Flagged by Analyzer 0 % (0-5); Neutrophil # 2.74 X10^3/uL (2.7-7.7); Platelet Count 182 K/mm3 (150-450); RBC Distribution Width CV 13.5 % (11.6-14.6); RBC Distribution Width SD 49.7 fl (35.1-43.9)
[2019-10-01 05:26] LABS: Anion Gap 3 (5-15); BUN 23 mg/dL (7-18); BUN/Creat Ratio 22.8 RATIO (10-20); Calcium,Total 8.4 mg/dL (8.5-10.1); Chloride 108 mmol/L (98-107); Cholesterol 260 mg/dL (200); Creatinine, Serum 1.01 mg/dL (0.55-1.02); EST Glomerular Filtration Rate 58 mL/min (>60); Est Glom Filt Rate - Afr Amer 70 mL/min (>60); Estimated Creatinine Clearance 40.23 ml/min; Glucose 105 mg/dL (74-106); High Density Lipoprotein 51 mg/dL; Potassium 3.8 mmol/L (3.5-5.1); Sodium Level 140 mmol/L (136-145); Triglycerides 165 mg/dL; Very Low Density Lipoprotein 33 mg/dL (5-40)
--- NOTE | 2019-10-01 08:00 | ECHOD_ITS ---
Reason For Study: TIA/CVA Procedure This was a 2D Doppler, Color Flow transthoracic echocardiogram. The study was technically difficult. Due to obesity. Exam performed portable in patient room. Left Ventricle Moderately dilated left ventricle. The estimated ejection fraction is 45-50 %. Stage 1 diastolic dysfunction. Septal motion consistent with IVCD. Mid-Anterior : Severely Hypokinetic. Mid- anteroseptal : Severely Hypokinetic. Anterior [place] : Akinetic. There are regional wall motion abnormalities as specified. Right Ventricle Normal size and thickness. A moderator band is seen in the right ventricle. Normal systolic function. Atria Normal left atrium. Normal right atrium. Normal atrial septum. Bubble contrast study negative for right to left interatrial shunt. Mitral Valve The mitral valve is structurally normal. No prolapse or stenosis seen. Tricuspid Valve Normal tricuspid valve. Unable to estimate RV systolic pressure due to insufficient tricuspid regurgitant envelope. Aortic Valve Normal aortic valve. Trisinus/trileaflet aortic valve. Pulmonic Valve The pulmonic valve is not well visualized. Great Vessels Normal aortic root. Normal arch. Normal inferior vena cava. Inferior vena cava collapse with sniff. Pericardium/Pleural No pericardial effusion. Medication Performed a rapid injection of agitated mix of 9 cc saline and 1cc air to assess for atrial septal defect. MMode/2D Measurements & Calculations LVIDd: 5.8 cm IVSd: 1.2 cm Ao root diam: 3.2 cm LVIDs: 4.3 cm LVPWd: 1.00 cm RVDd: 3.5 cm FS: 26.9 % LAV(MOD-bp): 52.2 ml LA A4 area: 18.0 cm2 LA dimension(2D): 3.5 cm LAV(MOD-bp) Indexed: 26.4 ml/m2 LAV(MOD-sp2): 54.1 ml LAV(MOD-sp4): 50.1 ml RA A4 area: 11.3 cm2 Doppler Measurements & Calculations MV E max judson: 68.7 cm/sec Lat Peak E' Judson: 9.0 cm/sec Med Peak E' Judson: 6.5 cm/sec MV A max judson: 116.6 cm/sec E/E' lat: 7.7 E/E' med: 10.6 MV E/A: 0.59 Ao V2 max: 171.1 cm/sec LV V1 max: 108.9 cm/sec Ao max P.7 mmHg LV V1 max P.7 mmHg Ao V2 mean: 115.7 cm/sec LV V1 mean P.7 mmHg Ao mean P.9 mmHg LV V1 mean: 79.7 cm/sec Ao V2 VTI: 34.2 cm LV V1 VTI: 25.5 cm Interpretation Summary Moderately dilated left ventricle. The estimated ejection fraction is 45-50 %. Stage 1 diastolic dysfunction. There are regional wall motion abnormalities as specified. Bubble contrast study negative for right to left interatrial shunt. Unable to estimate RV systolic pressure due to insufficient tricuspid regurgitant envelope. Compared to previous echo report dated 03/31/2017, no appreciable changes noted. Unable to quantitate RVSP on today's exam. Ordering Physician: Marissa Reyes Referring Physician: Norma Han Performed By: Kathia Almaraz, ECHO, RVT
--- NOTE | 2019-10-01 08:39 | CPS ---
Pt told [employer] ATTENDANT she is allergic to tape and the Pulse-ox probe was making her finger burn and itch so it was taken off.
--- NOTE | 2019-10-01 09:05 | TELEMED_ITS ---
[facility] Telemed has confirmed receipt of a request for visit. This document confirms receipt of the order initiating the consult. To find the results of the consultation, please view the patient's reports for the scanned Telemed Consult.
[2019-10-01 09:50] LABS: Thyroid Stim Hormone (TSH) 1.31 uIU/mL (0.358-3.74)
[2019-10-01] MEDS: Aspirin 81 MG TAB.CHEW PO (09:57)
--- NOTE | 2019-10-01 11:59 | DCINST_ITS ---
- Discharge Diagnoses Current Active Problems: Current Active and Chronic Problems (Last Reviewed 02/05/19 @ 15:[address] Noel Mcdonald MD) Acute ischemic stroke (Acute) You will use the following diet at home:: Cardiac Your food should be the consistency of: Regular Your liquids should be the consistency of: Regular/Thin Discharge Activity: Return to Normal Activity Allergies/Adverse Reactions: Allergies propoxyphene napsylate [From Darvocet-N 100] Allergy (Verified 12/08/16 15:33) Shortness of breath amitriptyline HCl [From Elavil] Adverse Reaction (Verified 12/08/16 15:33) SEIZURES diltiazem HCl [From Cardizem] Adverse Reaction (Verified 12/08/16 15:33) PANIC ATTACKS, CONFUSION gabapentin Adverse Reaction (Verified 03/30/17 19:21) HALLUCINATIONS ibuprofen Adverse Reaction (Verified 03/30/17 19:21) HEART PALPITATIONS isosorbide mononitrate [From Imdur] Adverse Reaction (Verified 12/08/16 15:33) MIGRAINE,VOMITING paroxetine HCl [From Paxil] Adverse Reaction (Verified 12/08/16 15:33) SEIZURES TAPE Adverse Reaction (Uncoded 12/08/16 15:33) BLISTERS Medications to take at Discharge Duloxetine Hcl [Cymbalta] 30 mg PO DAILY 05/05/13 Furosemide [Lasix] 60 mg PO DAILY 05/05/13 Garlic 1,000 mg PO QHS 05/05/13 Lisinopril [Zestril] 40 mg PO DAILY 05/05/13 Lorazepam [Ativan] 0.5 mg PO QHS 05/05/13 Magnesium Oxide [Mag-Ox 400] 400 mg PO BID 05/05/13 Nitroglycerin (INPATIENT USE) [Nitrostat] 0.4 mg SUBLINGUAL Q5M PRN 05/05/13 Omeprazole [Prilosec] 40 mg PO DAILY 05/05/13 Ranolazine [Ranexa] 1,000 mg PO BID 03/24/14 Acetaminophen/Diphenhydramine [Acetaminophen Pm Caplet] 1 ea PO QHS #0 06/13/14 [place]-3 Fatty Acids/Fish Oil [[place] 3 Fish Oil Softgel] 1 ea PO BID 06/13/14 Amlodipine [Norvasc] 5 mg PO DAILY 12/08/16 Carvedilol [Coreg] 12.5 mg PO BID 12/08/16 Aspirin [Aspirin, Baby] 81 mg PO DAILY@0800 #30 tab.chew 10/01/19 Atorvastatin Calcium 40 mg PO QHS #30 tab 10/01/19 Ezetimibe 10 mg PO DAILY 10/01/19 The following prescriptions were given: Aspirin [Aspirin, Baby] 81 mg PO DAILY@0800 #30 tab.chew Transmission Status: Pending to [facility] Atorvastatin Calcium 40 mg PO QHS #30 tab Transmission Status: Pending to [facility] Primary Care Physician: Norma Han MD [Primary Care Provider] - Please follow up with your Primary Care Physician in: 1-2 weeks Test Results: Test results from this visit will be discussed in further detail at your follow- up appointment, if applicable. Please Follow Up With: Junior Chung MD When: 3-4 weeks Proposed Discharge Date: 10/01/19
--- NOTE | 2019-10-01 12:00 | DS.PCM_ITS ---
<Jarrett Jimenez - Last Filed: 10/01/19 12:00> Discharge Date and Diagnosis Date of Admission: 10/01/19 Date of Discharge: 10/01/19 - Primary Discharge Diagnosis Acute Problems: Active Problems (Last Reviewed 02/05/19 @ 15:[address] Noel Mcdonald MD) TIA hx TIA Hx narrowed left vertebral artery Hx Prinzmetal angina, NSTEMI Hx statin intolerance due to fibromyalgia - Secondary Discharge Diagnosis Chronic Problems: Chronic Problems (Last Reviewed 02/05/19 @ 15:[address] Noel Mcdonald MD) Prinzmetal's angina (Chronic) Left bundle branch block (LBBB) (Chronic) Essential (primary) hypertension (Chronic) Hyperlipidemia (Chronic) TIA (transient ischemic attack) (Chronic) Hospital Course and Treatment Imaging Results: CT/Brain/Head without Contrast IMPRESSION: Minimal atrophy no evidence of acute hemorrhage infarct or edema. CT/CTA Head AND Neck W/ Contrast IMPRESSION: Anatomic variation right anterior circulation as detailed above stable since prior study. Nonspecific lesser stable vascular appearance of the left side frontoparietal white matter, distal M3 territory compared to the right without evidence of focal edema . Minimal calcification of the left carotid artery without stenosis. Trace calcification of the right side carotid bulb without significant rate limiting stenosis. Mildly enlarged inhomogeneous thyroid gland. Consider follow-up thyroid ultrasound laboratory values when appropriate. Multilevel degenerative changes of the cervical spine multilevel spondylosis neural foramina narrowing. Recommend consideration for follow-up MRI when clinically appropriate. N.B. : The above information has been verbally conveyed by Ethel Vizcarra MD to Dr. Tao Gibson MD, on 10/01/2019 03:23:40 (ET). MRI/Brain without Contrast IMPRESSION: 1. Involutional changes of the brain, as described above. 2. Enlarging cystic lesion within the pituitary. 3. No MR evidence for acute infarct. Echo: Interpretation Summary Moderately dilated left ventricle. The estimated ejection fraction is 45-50 %. Stage 1 diastolic dysfunction. There are regional wall motion abnormalities as specified. Bubble contrast study negative for right to left interatrial shunt. Unable to estimate RV systolic pressure due to insufficient tricuspid regurgitant envelope. Compared to previous echo report dated 03/31/2017, no appreciable changes noted. Unable to quantitate RVSP on today's exam. Consults: Neuro - SOC Operations: None Procedures: 2-D Echocardiogram Summary of Care Provided: Hospital course: The patient is a 69 year old F with pmhx of TIA, prinzmetal angina and NSTEMI, hx narrowed left vertebral artery, statin intolerance due to fibromyalgia, who presented to the ER with c/o change in speech. The patient had difficulty saying what she wanted to say and felt weak and confused. She had stopped taking aspirin 8 months prior due to recommendation by her dental secretary, according to the patient. The patient had an NIH of 2 in the ER. [facility] tele stroke alert called and patient to be determined to be outside of the tPA window. CT brain negative. Symptoms completed resolved in the ER : NIH 0 at time of admission. MRI was obtained and was negative for stroke. Echo showed no new changes and negative for ASD. CTA head and neck showed no areas of concern at this time, results as above. Tele neuro was consulted and recommended the patient start on baby aspirin and statin. Her FLP showed poor control despite her zetia therapy : T cholesterol 260, LDL 176, HDL 51. She was strongly advised to attempt to try taking the statin altho it gave her muscle aches in the past and to discuss further options for her cholesterol with her PCP. The patient had no further symptoms. She was discharged home in stable condition and should follow up with her PCP in 1-2 weeks and with Neurology in 2 weeks. 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 This patient was seen by Jarrett Jimenez PA-C under the supervision of Doctor Escalante. [] - Physical Exam Vitals/I&O's: Vital Signs Temp Pulse Resp BP Pulse Ox 97.5 F L 62 16 146/59 H 97 10/01/19 08:01 10/01/19 08:01 10/01/19 08:01 10/01/19 08:01 10/01/19 08:01 Oxygen Delivery Method Room Air Weight: 222 lb 7.143 oz Body Mass Index (BMI) 42.0 Finger Stick Blood Glucose 101 Intake and Output for Last 24 Hours 07/27/20 07/28/20 07/29/20 23:59 23:59 23:59 Intake Total 475 / 475 Balance 475 / 475 General: Alert, Oriented x3, Cooperative HEENT: Atraumatic, PERRLA, EOMI, Normocephalic Neck: Supple, No JVD, Negative Carotid Bruits Lungs: Clear to auscultation, Normal air movement Cardiovascular: Regular rate, No murmurs Abdomen: Bowel Sounds Present, Soft, Non Tender Extremities: No edema, Capillary Refill Less than 3 Seconds Skin: No rashes, No breakdown Musculoskeletal: No Tenderness to Palpation of Joints or Extremities Neurological: Cranial nerves II-XII grossly intact Psych/Mental Status: Normal Affect, Appropriate, Alert and oriented to time, place, person, mood and affect Laboratory Results 10/01/19 02:32: WBC 6.7, RBC 3.60 L, Hgb 11.4 L, Hct 35.5 L, MCV 98.6, MCH 31.7, MCHC 32.1, RDW Std Deviation 48.1 H, RDW Coeff of Kesha 13.3, Plt Count 194, MPV 11.9, Immature Gran % (Auto) 0.300, Neut % (Auto) 46.6 L, Lymph % (Auto) 39.9, [place] % (Auto) 11.5 H, Eos % (Auto) 1.3, Baso % (Auto) 0.4, Absolute Neuts (auto) 3.1, Absolute Lymphs (auto) 2.68, Nucleated RBC % 0 10/01/19 02:32: PT 12.7, INR 1.0, APTT 27.3 10/01/19 02:32: Sodium 141, Potassium 4.3, Chloride 108 H, Carbon Dioxide 29.0, Anion Gap 4 L, BUN 26 H, Creatinine 1.01, Estim Creat Clear Calc 40.23, Est GFR (MDRD) Af Amer 70, Est GFR (MDRD) Non-Af 58 L, BUN/Creatinine Ratio 25.7 H, Glucose 96, Calcium 8.8, Troponin I < 0.015 10/01/19 04:54: Sodium 140, Potassium 3.8, Chloride 108 H, Carbon Dioxide 29.0, Anion Gap 3 L, BUN 23 H, Creatinine 1.01, Estim Creat Clear Calc 40.23, Est GFR (MDRD) Af Amer 70, Est GFR (MDRD) Non-Af 58 L, BUN/Creatinine Ratio 22.8 H, Glucose 105, Calcium 8.4 L, Troponin I < 0.015, Triglycerides 165, Cholesterol 260 H, LDL Cholesterol 176 H, VLDL Cholesterol 33, HDL Cholesterol 51 10/01/19 04:54: WBC 5.0, RBC 3.40 L, Hgb 10.9 L, Hct 34.2 L, MCV 100.6 H, MCH 32.1 H, MCHC 31.9 L, RDW Std Deviation 49.7 H, RDW Coeff of Kesha 13.5, Plt Count 182, MPV 11.6, Immature Gran % (Auto) 0.400, Neut % (Auto) 55.0, Lymph % (Auto) 30.1, [place] % (Auto) 12.7 H, Eos % (Auto) 1.4, Baso % (Auto) 0.4, Absolute Neuts (auto) 2.7, Absolute Lymphs (auto) 1.50, Nucleated RBC % 0 10/01/19 04:54: TSH 1.31 Current Medications Aspirin (Aspirin, Baby) 81 mg PO DAILY@0800 SETH Last Admin: 10/01/19 09:57 Dose: 81 mg Documented by: Dextrose (D50w Syringe) 0 gm IV X1 PRN; Protocol PRN Reason: Hypoglycemia Glucagon () 1 mg IM .X1 PRN PRN Reason: Hypoglycemia Hydralazine HCl (Apresoline Iv) 5 mg IV Q30M PRN PRN Reason: to maintain BP goals Sodium Chloride () 1,000 mls @ 100 mls/hr IV .Q10H ONE Stop: 10/01/19 12:40 Last Infusion: 10/01/19 10:06 Dose: 100 mls/hr Documented by: Sodium Chloride () 250 mls @ 15 mls/hr IV .[id number] PRN PRN Reason: Saline Flush Sodium Chloride () 250 mls @ 15 mls/hr IV .[id number] PRN PRN Reason: Additional IVPB Infusion Labetalol HCl (Trandate) 20 mg IV X1 PRN PRN Reason: BLOOD PRESSURE Labetalol HCl (Trandate) 10 - 20 mg IV Q10M PRN PRN PRN Reason: to maintain BP goals Ondansetron HCl (Zofran) 4 mg IV Q8H PRN PRN PRN Reason: NAUSEA/VOMITING Sodium Chloride () 10 - 40 ml IV UD PRN PRN Reason: SALINE FLUSH Discharge Diet: Low fat/ Low Cholesterol, 2000 mg Sodium Diet Discharge Activity: Return to Normal Activity Home Medications: Medications to take at Discharge Duloxetine Hcl [Cymbalta] 30 mg PO DAILY 05/05/13 Furosemide [Lasix] 60 mg PO DAILY 05/05/13 Garlic 1,000 mg PO QHS 05/05/13 Lisinopril [Zestril] 40 mg PO DAILY 05/05/13 Lorazepam [Ativan] 0.5 mg PO QHS 05/05/13 Magnesium Oxide [Mag-Ox 400] 400 mg PO BID 05/05/13 Nitroglycerin (INPATIENT USE) [Nitrostat] 0.4 mg SUBLINGUAL Q5M PRN 05/05/13 Omeprazole [Prilosec] 40 mg PO DAILY 05/05/13 Ranolazine [Ranexa] 1,000 mg PO BID 03/24/14 Acetaminophen/Diphenhydramine [Acetaminophen Pm Caplet] 1 ea PO QHS #0 06/13/14 [place]-3 Fatty Acids/Fish Oil [[place] 3 Fish Oil Softgel] 1 ea PO BID 06/13/14 Amlodipine [Norvasc] 5 mg PO DAILY 12/08/16 Carvedilol [Coreg] 12.5 mg PO BID 12/08/16 Aspirin [Aspirin, Baby] 81 mg PO DAILY@0800 #30 tab.chew 10/01/19 Atorvastatin Calcium 40 mg PO QHS #30 tab 10/01/19 Ezetimibe 10 mg PO DAILY 10/01/19 Following Prescrptions Were Given to Patient: Aspirin [Aspirin, Baby] 81 mg PO DAILY@0800 #30 tab.chew Transmission Status: Received by [facility] Atorvastatin Calcium 40 mg PO QHS #30 tab Transmission Status: Received by [facility] Primary Care Physician: Norma Han MD [Primary Care Provider] - Please follow up with your Primary Care Physician in: 1-2 weeks Please Follow Up With: Junior Chung MD When: 3-4 weeks Disposition: Home Minutes spent on discharge:: 35 Patient Condition:: Stable Medical Necessity - Tobacco Use Smoking Status: Former smoker Meaningful Use Info Meaningful Use Diagnoses (Choose all that apply): None applicable <Boris,Alejandro - Last Filed: 10/01/19 16:58> Discharge Date and Diagnosis - Secondary Discharge Diagnosis Chronic Problems: Chronic Problems (Last Reviewed 02/05/19 @ 15:[address] Noel Mcdonald MD) Prinzmetal's angina (Chronic) Left bundle branch block (LBBB) (Chronic) Essential (primary) hypertension (Chronic) Hyperlipidemia (Chronic) TIA (transient ischemic attack) (Chronic) Hospital Course and Treatment Imaging Results: 10/01/19 08:00 Echo Complete [ECHO] Routine Summary of Care Provided: This patient was seen in conjunction with Jarrett PEACOCK. I have independently interviewed and examined the patient and reviewed pertinent history, examination findings, laboratory and plan of management. I have reviewed the note and agree with the documented findings with the few additional points. In brief, patient is 69-year-old female with history of non-STEMI, Prinzmetal angina and TIA was admitted with sudden onset of language deficit, motor aphasia and dysarthria. CTAs did not show any acute change. In ED NIH stroke scale was 2 and patient was determined to be out of TPA window. Head and neck CTA shows anatomic variation of right anterior circulation. Trace calcification of right side of carotid bulb without significant rate limiting stenosis. MRI brain done which showed no evidence of acute infarct. Enlarging cystic lesion within pituitary. Patient NIH scale was found 0 on the floor and thereafter. Stroke protocol was followed. Neurology consult was done. Patient on baby aspirin and statin. LDL 176, total cholesterol 260. BP and glucose control as per stroke guidelines. PT OT and speech therapy was performed. Echo showed normal left atrium and bubble contrast study negative for [id number] interatrial shunt. EF 45 to 50% with stage I diastolic dysfunction consistent with chronic systolic and diastolic heart failure. Discharge medication reconciliation done. Discharge follow-up instructions comp leted. Discharge process discussed with the patient and all questions were answered to patient's satisfaction. Total time spent, exact 35 minutes on discharge meds reconciliation, examination, coordination of care with nurses and ancillary staff, review of imaging and blood test and discussion with the patient on follow-up instructions I have discussed my assessment with Jarrett PEACOCK and orders have been reviewed. Clinical Impression(s) from Imaging Studies Brain CT 10/01/19 02:40 IMPRESSION: Minimal atrophy no evidence of acute hemorrhage infarct or edema. Head/Neck CTA 10/01/19 02:42 IMPRESSION: Anatomic variation right anterior circulation as detailed above stable since prior study. Nonspecific lesser stable vascular appearance of the left side frontoparietal white matter, distal M3 territory compared to the right without evidence of focal edema . Minimal calcification of the left carotid artery without stenosis. Trace calcification of the right side carotid bulb without significant rate limiting stenosis. Mildly enlarged inhomogeneous thyroid gland. Consider follow-up thyroid ultrasound laboratory values when appropriate. Multilevel degenerative changes of the cervical spine multilevel spondylosis neural foramina narrowing. Recommend consideration for follow-up MRI when clinically appropriate. Brain MRI 10/01/19 04:40 IMPRESSION: 1. Involutional changes of the brain, as described above. 2. Enlarging cystic lesion within the pituitary. 3. No MR evidence for acute infarct. \ [] Objective: Seen and examined. Patient is hard of hearing mainly from left ear. She was admitted with sudden onset of language deficit. She was able to understand but could not get the words out, dysarthria. She had no problem in reading and writing. Patient does not have history of arrhythmia. Her symptoms resolved. Physical exam General: Alert, Oriented x3, Cooperative HEENT: Atraumatic, PERRLA, EOMI, Normocephalic Oral: No Gingival or Mucosal Lesions/ Ulcerations Neck: Supple, No JVD, Negative Carotid Bruits Lungs: Air entry equal in bilateral lung bases. No crepitation/rhonchi Cardiovascular: Regular rate, Regular Rhythm, Normal S1, Normal S2, No murmurs. monitoring analyst shows normal sinus rhythm. Abdomen: Bowel Sounds Present, Soft, Non Tender, Non-Distended : No renal angle tenderness. No suprapubic tenderness. Extremities: No edema, Capillary Refill Less than 3 Seconds Skin: No rashes, No breakdown Musculoskeletal: No Tenderness to Palpation of Joints or Extremities Neurological: Cranial nerves II-XII grossly intact, Deep Tendon Reflexes 2+/4 and Symmetrical, Neuro grossly intact. NIH stroke scale 0 Psych/Mental Status: Normal Affect, Appropriate. - Physical Exam Vitals/I&O's: Vital Signs Temp Pulse Resp BP Pulse Ox 97.0 F L 69 16 116/53 L 95 10/01/19 12:00 10/01/19 12:10/01/19 12:10/01/19 12:00 10/01/19 12:00 Oxygen Delivery Method Room Air Weight: 222 lb 7.143 oz Body Mass Index (BMI) 42.0 Finger Stick Blood Glucose 101 Intake and Output for Last 24 Hours 09/29/19 09/30/19 10/01/19 23:59 23:59 23:59 Intake Total 1115 / 1115 Balance 1115 / 1115 Laboratory Results 10/01/19 02:32: WBC 6.7, RBC 3.60 L, Hgb 11.4 L, Hct 35.5 L, MCV 98.6, MCH 31.7, MCHC 32.1, RDW Std Deviation 48.1 H, RDW Coeff of Kesha 13.3, Plt Count 194, MPV 11.9, Immature Gran % (Auto) 0.300, Neut % (Auto) 46.6 L, Lymph % (Auto) 39.9, [place] % (Auto) 11.5 H, Eos % (Auto) 1.3, Baso % (Auto) 0.4, Absolute Neuts (auto) 3.1, Absolute Lymphs (auto) 2.68, Nucleated RBC % 0 10/01/19 02:32: PT 12.7, INR 1.0, APTT 27.3 10/01/19 02:32: Sodium 141, Potassium 4.3, Chloride 108 H, Carbon Dioxide 29.0, Anion Gap 4 L, BUN 26 H, Creatinine 1.01, Estim Creat Clear Calc 40.23, Est GFR (MDRD) Af Amer 70, Est GFR (MDRD) Non-Af 58 L, BUN/Creatinine Ratio 25.7 H, Glucose 96, Calcium 8.8, Troponin I < 0.015 10/01/19 04:54: Sodium 140, Potassium 3.8, Chloride 108 H, Carbon Dioxide 29.0, Anion Gap 3 L, BUN 23 H, Creatinine 1.01, Estim Creat Clear Calc 40.23, Est GFR (MDRD) Af Amer 70, Est GFR (MDRD) Non-Af 58 L, BUN/Creatinine Ratio 22.8 H, Glucose 105, Calcium 8.4 L, Troponin I < 0.015, Triglycerides 165, Cholesterol 260 H, LDL Cholesterol 176 H, VLDL Cholesterol 33, HDL Cholesterol 51 10/01/19 04:54: WBC 5.0, RBC 3.40 L, Hgb 10.9 L, Hct 34.2 L, MCV 100.6 H, MCH 32.1 H, MCHC 31.9 L, RDW Std Deviation 49.7 H, RDW Coeff of Kesha 13.5, Plt Count 182, MPV 11.6, Immature Gran % (Auto) 0.400, Neut % (Auto) 55.0, Lymph % (Auto) 30.1, [place] % (Auto) 12.7 H, Eos % (Auto) 1.4, Baso % (Auto) 0.4, Absolute Neuts (auto) 2.7, Absolute Lymphs (auto) 1.50, Nucleated RBC % 0 10/01/19 04:54: TSH 1.31 Inpatient E&M: [id number] Disch Hosp
--- NOTE | 2019-10-01 13:36 | CASEMGMT ---
Social Work Pt presents with TIA. SW met with pt and completed PHQ9 depression screen with score of 4/27 indicating minimal depression. Pt stating trouble sleeping and feeling tired is long standing issue. Pt expressed that she has seen a counselor in the past and she explained coping mechanisms that she uses. Pt made aware that depression can follow TIA/Stroke and encouraged pt to be aware of feelings and speak with counselor or physician should depression increase. MAURILIO Best
--- NOTE | 2019-10-01 14:33 | PHA.DC.MC ---
Pharmacy Service has performed discharge medication reconciliation and counseling for this patient. 1. ASPIRIN 81MG PO DAILYCM 2. ATORVASTATIN 40MG PO QHS The patient's discharge medication list was reviewed for discrepancies and discrepancies were resolved. Home Medications Duloxetine Hcl [Cymbalta] 30 mg PO DAILY 05/05/13 Furosemide [Lasix] 60 mg PO DAILY 05/05/13 Garlic 1,000 mg PO QHS 05/05/13 Lisinopril [Zestril] 40 mg PO DAILY 05/05/13 Lorazepam [Ativan] 0.5 mg PO QHS 05/05/13 Magnesium Oxide [Mag-Ox 400] 400 mg PO BID 05/05/13 Nitroglycerin (INPATIENT USE) [Nitrostat] 0.4 mg SUBLINGUAL Q5M PRN 05/05/13 Omeprazole [Prilosec] 40 mg PO DAILY 05/05/13 Ranolazine [Ranexa] 1,000 mg PO BID 03/24/14 Acetaminophen/Diphenhydramine [Acetaminophen Pm Caplet] 1 ea PO QHS #0 06/13/14 [place]-3 Fatty Acids/Fish Oil [[place] 3 Fish Oil Softgel] 1 ea PO BID 06/13/14 Amlodipine [Norvasc] 5 mg PO DAILY 12/08/16 Carvedilol [Coreg] 12.5 mg PO BID 12/08/16 Aspirin [Aspirin, Baby] 81 mg PO DAILY@0800 #30 tab.chew 10/01/19 Atorvastatin Calcium 40 mg PO QHS #30 tab 10/01/19 Ezetimibe 10 mg PO DAILY 10/01/19 The patient was counseled on the following discharge medications and changes in medications for homegoing were reviewed. The Reason for Use, instructions for use, and potential side effects were reviewed for all new medications. The patient's questions regarding all of their medications were answered. The patient was able to verbally demonstrate an understanding of their discharge medications. Patient was counseled by hospital pharmacy technicianNirali.
== END 2019-10-01 11:59 | disposition home or self-care (01) ==
LOC: ED 03:05 → PCU 03:42
PROVIDERS: Physician Assistant; Admitting Provider Student in an Organized Health Care Education/Training Program; Emergency Provider Emergency Medicine; PCP Internal Medicine; Referring Provider Student in an Organized Health Care Education/Training Program; Visit Provider Internal Medicine
DX: G45.9 Transient cerebral ischemic attack, unspecified (principal); M79.7 Fibromyalgia; R47.01 Aphasia; I10 Essential (primary) hypertension; E78.5 Hyperlipidemia, unspecified; I25.2 Old myocardial infarction; I25.111 Atherosclerotic heart disease of native coronary artery with angina pectoris with documented spasm; R29.702 NIHSS score 2; I44.7 Left bundle-branch block, unspecified; R94.31 Abnormal electrocardiogram [ECG] [EKG]; F41.9 Anxiety disorder, unspecified; F32.9 Major depressive disorder, single episode, unspecified; E66.01 Morbid (severe) obesity due to excess calories; G47.33 Obstructive sleep apnea (adult) (pediatric); K21.9 Gastro-esophageal reflux disease without esophagitis; Z79.899 Other long term (current) drug therapy; Z87.891 Personal history of nicotine dependence; Z68.41 Body mass index [BMI] 40.0-44.9, adult
CPT/HCPCS: 36415; 70450; 70496; 70498; 70551; 71045; 80048; 80061; 84443; 84484; 85025; 85610; 85730; 92610; 93005; 93306; 94762; 96360; 96361; 97162; 97166; 97802; 99218; 99285; 99406; J7030; Q9957; Q9967; A4216; G0378

== ENCOUNTER 2022-01-02 04:34 | Emergency (ER) | payer MEDICARE, MEDICAID, SELFPAY ==
[2022-01-02 04:35] VITALS: BP 155/79; PULSE 74; RESP 16; TEMP 36; O2SAT 98; BMI 45.3
--- NOTE | 2022-01-02 05:28 | ADUUE_ITS ---
Reason For Study: Post heart cath, pain and swelling RIGHT Ulnar artery, prox, 0.27 x 0.29 cm, 60.9 cm/sec. Ulnar artery, mid, 0.25 x 0.25 cm, 59.7 cm/sec. Ulnar artery, distal, 0.17 x 0.17 cm, 113.2 cm/sec. Radial artery, distal, 0.15 x 0.17 cm, 79.2 cm/sec. Brachial artery, distal, 0.37 x 0.37 cm, 180.3 cm/sec. Radial and Ulnar veins are compressible. Per patient, went through the ulnar artery. No evidence of occlusion or pseudoaneurysm noted. Preliminary to ED. /US Art Duplex Unilat UP Extrem Interpretation Summary Ulnar artery appears to be of appropriate diameter and flow. The right radial artery is diminished in diameter at 0.15 x 0.17 cm distally th ough has triphasic flow. The right brachial artery is a normal diameter from 0.37 x 3.37 cm with a peak systolic flow rate of 180 cm second flow which is increased in comparison to the other vessels but fo kay stenosis not identified. No evidence for occlusion or pseudoaneurysm or fistula identified Patent and compressible right radial and or normal veins Ordering Physician: Emy Lowe Referring Physician: Norma Han M.D. Performed By: Anupama Chaudhry RVT
[2022-01-02 05:52] LABS: Absolute Lymphocyte Count 1.39 X10^3/uL (0.83-4.51); Absolute Neutrophil Count 2.8 X10^3/uL (2.0-7.7); Basophil# 0.02 X10^3/uL; Basophil% 0.4 % (0-1); Eosinophil# 0.13 X10^3/uL; Eosinophils% 2.6 % (0-5); Hematocrit 31.6 % (37-47); Hemoglobin 10.3 g/dL (12.0-15.0); Lymphocyte # 1.39 X10^3/ul (0.83-4.51); Lymphocyte % 27.4 % (19-41); Mean Corp Hgb Conc 32.6 g/dL (32-36); Mean Corpuscular Hgb 32.1 pg (27.0-32.0); Mean Corpuscular Volume 98.4 fL (81-99); Mean Platelet Vol. 11.3 fl (6.2-12.0); Monocyte% 13.8 % (0-10); NRBC Flagged by Analyzer 0 % (0-5); Neutrophil # 2.82 X10^3/uL (2.7-7.7); Neutrophil % 55.4 % (47-70); Platelet Count 193 K/mm3 (150-450); RBC Distribution Width CV 13.6 % (11.6-14.6); RBC Distribution Width SD 48.7 fl (35.1-43.9); Red Blood Count 3.21 M/mm3 (4.2-5.4); White Blood Count 5.1 K/mm3 (4.4-11.0)
--- NOTE | 2022-01-02 05:52 | EX.ED.UPPERE ---
HPI History of Present Illness Chief Complaint: Upper Extremity Injury Detail of Chief Complaint: Right wrist pain Informant: patient Narrative Narrative: Patient presents to the emergency department with complaint of right wrist pain x1 week. Patient states that she had a heart catheterization 1 week ago at [facility]. The heart catheterization was performed through the right wrist. Patient states that they attempted her radial artery but was too small so they went through her ulnar artery. Patient has a lot of bruising and swelling yet and continues to have pain that at times radiates up her arm. She denies weakness or loss of function of the arm. Patient states that she called the diesel pile hammer operator and was told that if she was concerned to have it evaluated. Patient tells me her heart cath did not require any type of intervention. [facility] Medical History (Updated 01/02/22 @ 07:[address] Emy Lowe, ) Anxiety and depression Cerebrovascular disease or lesion Essential (primary) hypertension Fibromyalgia GERD (gastroesophageal reflux disease) History of non-ST elevation myocardial infarction (NSTEMI) Hyperlipidemia Left bundle branch block (LBBB) Morbid obesity with BMI of 45.0-49.9, adult ZENON (obstructive sleep apnea) Prinzmetal's angina TIA (transient ischemic attack) Home Medications duloxetine 20 mg capsule,delayed release 30 mg PO DAILY anxiety/depression 05/05/13 [History Last Taken 09/30/19] furosemide 40 mg tablet 60 mg PO DAILY diuretic/water pill 05/05/13 [History Last Taken 09/30/19] garlic 1,000 mg capsule 1,000 mg PO QHS supplement 05/05/13 [History Last Taken 09/30/19] lisinopril 40 mg tablet 40 mg PO DAILY blood pressure 05/05/13 [History Last Taken 09/30/19] lorazepam 0.5 mg tablet 0.5 mg PO QHS anxiety 05/05/13 [History Last Taken 09/30/19] magnesium oxide 400 mg (241.3 mg magnesium) tablet 400 mg PO BID supplement 05/05/13 [History Last Taken 09/30/19] nitroglycerin 0.4 mg sublingual tablet 0.4 mg sublingual Q5M PRN Chest Pain 05/05/13 [History Last Taken 03/30/17] omeprazole 40 mg capsule,delayed release 40 mg PO DAILY gerd/acid reflux 05/05/13 [History Last Taken 09/30/19] ranolazine 500 mg tablet,extended release,12 hr 1,000 mg PO BID heart/chest pain 03/24/14 [History Last Taken 09/30/19] diphenhydramine 25 mg-acetaminophen 500 mg tablet 1 ea PO QHS sleep ##0 06/13/14 [History Last Taken 09/30/19] omega-3 fatty acids-fish oil 684 mg-1,200 mg capsule,delayed release 1 ea PO BID supplement 06/13/14 [History Last Taken 09/30/19] amlodipine 5 mg tablet 5 mg PO DAILY blood pressure 12/08/16 [History Last Taken 09/30/19] carvedilol 12.5 mg tablet 12.5 mg PO BID blood pressure/heart 12/08/16 [History Last Taken 09/30/19] aspirin 81 mg chewable tablet 81 mg PO DAILY@0800 ##30 10/01/19 [Rx Last Taken Unknown] atorvastatin 40 mg tablet 40 mg PO QHS #30 tabs 10/01/19 [Rx Last Taken Unknown] ezetimibe 10 mg tablet 10 mg PO DAILY 10/01/19 [History Last Taken 09/30/19] celecoxib 100 mg capsule (Celebrex) 100 mg PO BID 01/02/22 [History Last Taken Unknown] Allergy/AdvReac Type Severity Reaction Status Date / Time propoxyphene napsylate Allergy Shortness Verified 12/08/16 15:33 [From Darvocet-N 100] of breath amitriptyline HCl AdvReac SEIZURES Verified 12/08/16 15:33 [From Elavil] diltiazem HCl [From Cardizem] AdvReac PANIC Verified 12/08/16 15:33 ATTACKS, CONFUSION gabapentin AdvReac HALLUCINATI Verified 03/30/17 19:21 ONS ibuprofen AdvReac HEART Verified 03/30/17 19:21 PALPITATIONS isosorbide mononitrate AdvReac MIGRAINE,VO Verified 12/08/16 15:33 [From Imdur] MITING paroxetine HCl [From Paxil] AdvReac SEIZURES Verified 12/08/16 15:33 TAPE AdvReac BLISTERS Uncoded 12/08/16 15:33 Family History Father Heart disease Cancer Mother Heart disease Cancer Surgical History (Updated 10/01/19 @ 02:[address] Tao Gibson MD) History of hysterectomy History of left heart catheterization (2006) Social History (Updated 02/05/19 @ 15:[address] Noel Mcdonald MD) Smoking Status: Former smoker ROS ROS ED Review of Systems ROS Unobtainable: other Constitutional Constitutional ED: Reports lethargy; Denies chills, fever(s), sweats or weight loss Eyes Eyes: Denies blurry vision, change in vision or diplopia ENT ENT ED: Denies rhinorrhea or sore throat Cardiovascular Cardiovascular: Denies chest pain, orthopnea or racing heartbeat Respiratory/Chest Respiratory/Chest: Denies cough, dyspnea, dyspnea on exertion, orthopnea or sputum Gastrointestinal Gastrointestinal: Denies abdominal pain, diarrhea, nausea or vomiting Genitourinary Genitourinary ED: Denies dysuria, hematuria or urinary frequency Musculoskeletal Musculoskeletal: Reports other Details: Right wrist pain ; Denies arthralgias, back pain, myalgias or neck pain Integumentary Denies abscess, Abrasions or rash Neurologic Neurologic: Denies headache(s) or weakness Psychiatric Psychiatric: Denies anxiety, depression or suicidal thoughts Endocrine Endocrinology: Denies polydipsia, polyphagia or polyuria Hematologic/Lymphatic Hematologic/Lymphatic: Denies easy bleeding, easy bruising or lymphadenopathy Allergic/Immunologic Allergic/Immunologic ED: Denies mouth swelling, tongue swelling or urticaria EXAM Physical Exam Const Vital Signs: 01/02/22 04:35 Temperature 96.8 F L Temperature Source Oral Pulse Rate 74 Respiratory Rate 16 Blood Pressure 155/79 H Blood Pressure Mean 104 Pulse Ox 98 Oxygen Delivery Method Room Air Positive well nourished and well developed General Appearance ED: well developed and NAD HEENT Reports TM's clear and moist mucous membranes normocephalic and atraumatic; Negative for trauma or tenderness Tympanic Membrane ED: Yes TM's clear Eyes PERRL and EOMs intact bilaterally General Eye ED: Negative for pale conjunctiva or scleral icterus Neck no lymphadenopathy, supple and no JVD General: Negative for tenderness Chest Wall inspection of chest normal and palpation of chest normal Chest: Negative for tenderness Resp normal respiratory effort and clear to auscultation bilaterally Effort and Inspection: Negative for respiratory distress or pain with movement Auscultation: Negative for rhonchi, wheezes or diminished lung sounds Cardio regular rate, regular rhythm, S1 normal heart sound, S2 normal heart sound and no murmurs Peripheral Pulses: pulses 2+ throughout GI normal to inspection, nondistended, normoactive bowel sounds, soft to palpation, non-tender, non-distended and no masses Back/Spine no CVA tenderness and no thoracic nor lumbar tenderness Extremity Extremity Narrative: Right wrist-patient has diffuse ecchymosis and bruising over the volar and dorsal aspect of the wrist and forearm. Patient has normal pulses of the radial artery and ulnar artery. Normal Cruz's test. Neurovascularly intact. Normal range of motion. I do not palpate any masses over the ulnar artery at the puncture site. General Extremety ED: Negative for edema General Extremity: Negative for edema Neuro oriented x3, CN's II-XII intact bilaterally, no sensory deficits noted and gait normal Sensorium / Orientation: awake, alert, oriented to person, oriented to place and oriented to time Motor Exam: strength 5/5 throughout and strength abnormal Psych mental status grossly normal Skin no rashes or lesions noted and no wounds MDM MDM MDM Narrative Medical decision making narrative: I discussed case with diesel pile hammer operator on-call at [facility] who recommended obtaining an ultrasound to rule out pseudoaneurysm. I did order a arterial study to be performed when ultrasound arrives to the hospital approximately 8 AM. Care of patient will be turned over to morning physician awaiting results and final disposition. CBC with differential also was ordered. Discharge Plan Triage Chief Complaint: Upper Extremity Injury ED Provider: mEy Lowe Dx/Rx/DC Orders Clinical Impression: Pain in right wrist, Post-op pain Prescriptions: No Action furosemide 40 MG tablet 60 mg PO DAILY Label Comments: WATER PILL omeprazole 40 MG capsule 40 mg PO DAILY Label Comments: ACID REFLUX magnesium oxide 400 MG tablet 400 mg PO BID Label Comments: SUPPLEMENT lorazepam 0.5 MG tablet 0.5 mg PO QHS Label Comments: ANXIETY nitroglycerin 0.4 MG tablet 0.4 mg sublingual Q5M PRN (Reason: Chest Pain) Label Comments: CHEST PAIN lisinopril 40 MG tablet 40 mg PO DAILY Label Comments: BLOOD PRESSURE duloxetine 20 MG capsule 30 mg PO DAILY Label Comments: DEPRESSION garlic 1,000 MG capsule 1,000 mg PO QHS Label Comments: SUPPLEMENT ranolazine 500 MG tablet 1,000 mg PO BID Label Comments: HEART omega-3 fatty acids-fish oil 1 EACH capsule,delayed release(DR/EC) 1 ea PO BID diphenhydramine-acetaminophen 1 EACH tablet 1 ea PO QHS Qty: 0 carvedilol 12.5 MG tablet 12.5 mg PO BID amlodipine 5 MG tablet 5 mg PO DAILY ezetimibe 10 MG tablet 10 mg PO DAILY atorvastatin 40 MG tablet 40 mg PO QHS Qty: 30 0RF aspirin 81 MG tablet,chewable 81 mg PO DAILY@0800 Qty: 30 0RF celecoxib [Celebrex] 100 mg Capsule 100 mg PO BID Primary Care Provider: Norma Han Referrals: Norma Han MD [Primary Care Provider] -
[2022-01-02] MEDS: Acetaminophen 325 MG Tablet 650 MG PO (08:30)
--- NOTE | 2022-01-02 09:10 | EDS_ITS ---
HPI History of Present Illness Chief Complaint: Upper Extremity Injury [facility] Medical History (Updated 01/02/22 @ 07:[address] Emy Lowe, DO) Anxiety and depression Cerebrovascular disease or lesion Essential (primary) hypertension Fibromyalgia GERD (gastroesophageal reflux disease) History of non-ST elevation myocardial infarction (NSTEMI) Hyperlipidemia Left bundle branch block (LBBB) Morbid obesity with BMI of 45.0-49.9, adult ZENON (obstructive sleep apnea) Prinzmetal's angina TIA (transient ischemic attack) Home Medications duloxetine 20 mg capsule,delayed release 30 mg PO DAILY anxiety/depression 05/05/13 [History Last Taken 09/30/19] furosemide 40 mg tablet 60 mg PO DAILY diuretic/water pill 05/05/13 [History Last Taken 09/30/19] garlic 1,000 mg capsule 1,000 mg PO QHS supplement 05/05/13 [History Last Taken 09/30/19] lisinopril 40 mg tablet 40 mg PO DAILY blood pressure 05/05/13 [History Last Taken 09/30/19] lorazepam 0.5 mg tablet 0.5 mg PO QHS anxiety 05/05/13 [History Last Taken 09/30/19] magnesium oxide 400 mg (241.3 mg magnesium) tablet 400 mg PO BID supplement 05/05/13 [History Last Taken 09/30/19] nitroglycerin 0.4 mg sublingual tablet 0.4 mg sublingual Q5M PRN Chest Pain 05/05/13 [History Last Taken 03/30/17] omeprazole 40 mg capsule,delayed release 40 mg PO DAILY gerd/acid reflux 05/05/13 [History Last Taken 09/30/19] ranolazine 500 mg tablet,extended release,12 hr 1,000 mg PO BID heart/chest pain 03/24/14 [History Last Taken 09/30/19] diphenhydramine 25 mg-acetaminophen 500 mg tablet 1 ea PO QHS sleep ##0 06/13/14 [History Last Taken 09/30/19] omega-3 fatty acids-fish oil 684 mg-1,200 mg capsule,delayed release 1 ea PO BID supplement 06/13/14 [History Last Taken 09/30/19] amlodipine 5 mg tablet 5 mg PO DAILY blood pressure 12/08/16 [History Last Taken 09/30/19] carvedilol 12.5 mg tablet 12.5 mg PO BID blood pressure/heart 12/08/16 [History Last Taken 09/30/19] aspirin 81 mg chewable tablet 81 mg PO DAILY@0800 ##30 10/01/19 [Rx Last Taken Unknown] atorvastatin 40 mg tablet 40 mg PO QHS #30 tabs 10/01/19 [Rx Last Taken Unknown] ezetimibe 10 mg tablet 10 mg PO DAILY 10/01/19 [History Last Taken 09/30/19] celecoxib 100 mg capsule (Celebrex) 100 mg PO BID 01/02/22 [History Last Taken Unknown] Allergy/AdvReac Type Severity Reaction Status Date / Time propoxyphene napsylate Allergy Shortness Verified 12/08/16 15:33 [From Darvocet-N 100] of breath amitriptyline HCl AdvReac SEIZURES Verified 12/08/16 15:33 [From Elavil] diltiazem HCl [From Cardizem] AdvReac PANIC Verified 12/08/16 15:33 ATTACKS, CONFUSION gabapentin AdvReac HALLUCINATI Verified 03/30/17 19:21 ONS ibuprofen AdvReac HEART Verified 03/30/17 19:21 PALPITATIONS isosorbide mononitrate AdvReac MIGRAINE,VO Verified 12/08/16 15:33 [From Imdur] MITING paroxetine HCl [From Paxil] AdvReac SEIZURES Verified 12/08/16 15:33 TAPE AdvReac BLISTERS Uncoded 12/08/16 15:33 Family History Father Heart disease Cancer Mother Heart disease Cancer Surgical History (Updated 10/01/19 @ 02:[address] Tao Gibson MD) History of hysterectomy History of left heart catheterization (2006) Social History (Updated 02/05/19 @ 15:[address] Noel Mcdonald MD) Smoking Status: Former smoker EXAM Physical Exam Const Vital Signs: 01/02/22 04:35 Temperature 96.8 F L Temperature Source Oral Pulse Rate 74 Respiratory Rate 16 Blood Pressure 155/79 H Blood Pressure Mean 104 Pulse Ox 98 Oxygen Delivery Method Room Air MDM MDM Lab Data Labs: Laboratory Results - last 24 hr 01/02/22 05:35 WBC 5.1 RBC 3.21 L Hgb 10.3 L Hct 31.6 L MCV 98.4 MCH 32.1 H MCHC 32.6 RDW Std Deviation 48.7 H RDW Coeff of Kesha 13.6 Plt Count 193 MPV 11.3 Immature Gran % (Auto) 0.400 Neut % (Auto) 55.4 Lymph % (Auto) 27.4 [place] % (Auto) 13.8 H Eos % (Auto) 2.6 Baso % (Auto) 0.4 Absolute Neuts (auto) 2.8 Absolute Lymphs (auto) 1.39 Nucleated RBC % 0 Discharge Plan Triage Chief Complaint: Upper Extremity Injury ED Provider: Emy Lowe Dx/Rx/DC Orders Clinical Impression: Pain in right wrist, Post-op pain Prescriptions: No Action furosemide 40 MG tablet 60 mg PO DAILY Label Comments: WATER PILL omeprazole 40 MG capsule 40 mg PO DAILY Label Comments: ACID REFLUX magnesium oxide 400 MG tablet 400 mg PO BID Label Comments: SUPPLEMENT lorazepam 0.5 MG tablet 0.5 mg PO QHS Label Comments: ANXIETY nitroglycerin 0.4 MG tablet 0.4 mg sublingual Q5M PRN (Reason: Chest Pain) Label Comments: CHEST PAIN lisinopril 40 MG tablet 40 mg PO DAILY Label Comments: BLOOD PRESSURE duloxetine 20 MG capsule 30 mg PO DAILY Label Comments: DEPRESSION garlic 1,000 MG capsule 1,000 mg PO QHS Label Comments: SUPPLEMENT ranolazine 500 MG tablet 1,000 mg PO BID Label Comments: HEART omega-3 fatty acids-fish oil 1 EACH capsule,delayed release(DR/EC) 1 ea PO BID diphenhydramine-acetaminophen 1 EACH tablet 1 ea PO QHS Qty: 0 carvedilol 12.5 MG tablet 12.5 mg PO BID amlodipine 5 MG tablet 5 mg PO DAILY ezetimibe 10 MG tablet 10 mg PO DAILY atorvastatin 40 MG tablet 40 mg PO QHS Qty: 30 0RF aspirin 81 MG tablet,chewable 81 mg PO DAILY@0800 Qty: 30 0RF celecoxib [Celebrex] 100 mg Capsule 100 mg PO BID Primary Care Provider: Norma Han Referrals: Norma Han MD [Primary Care Provider] -
[2022-01-02 09:13] VITALS: PULSE 91; RESP 18; O2SAT 100
== END 2022-01-02 09:18 | disposition home or self-care (01) ==
PROVIDERS: Emergency Provider Emergency Medicine; PCP Internal Medicine; Visit Provider Emergency Medicine
DX: M25.531 Pain in right wrist (principal); G89.18 Other acute postprocedural pain; E78.5 Hyperlipidemia, unspecified; I10 Essential (primary) hypertension; I25.2 Old myocardial infarction; G47.33 Obstructive sleep apnea (adult) (pediatric); K21.9 Gastro-esophageal reflux disease without esophagitis; Z86.73 Personal history of transient ischemic attack (TIA), and cerebral infarction without residual deficits; Z79.82 Long term (current) use of aspirin; Z79.899 Other long term (current) drug therapy; Z87.891 Personal history of nicotine dependence
CPT/HCPCS: 85025; 93931; 99282

== ENCOUNTER 2022-01-23 17:23 | Emergency (ER) | payer MEDICARE, MEDICAID, SELFPAY ==
[2022-01-23 17:26] VITALS: BP 104/66; PULSE 66; RESP 18; TEMP 36.3; O2SAT 99; BMI 44.6
--- NOTE | 2022-01-23 20:16 | CT_ITS ---
STUDY: CT BRAIN WITHOUT CONTRAST REASON FOR EXAM: Female, 72 years old. Tripped and fall in parking lot. Laceration on bridge of nose. Head injury. RADIATION DOSAGE (If Supplied By Facility): CTDIvol = ( 44.99 ) mGy, DLP = ( 812.98 ) mGycm TECHNIQUE: Transaxial CT imaging of the brain was performed without administration of intravenous contrast material. Individualized dose optimization techniques were used for this CT. COMPARISON: October 01, 2019 FINDINGS: Normal soft tissue structures. Normal calvarium. Normal size ventricles and extra-axial spaces for the patient''s age. Normal white matter tracts of the cerebral hemispheres. Normal basal ganglia and thalami. Normal brainstem. Normal cerebellum. There is no intracranial hemorrhage. There are no findings of an acute ischemic infarction. Normal visualized paranasal sinuses. CT/Brain/Head without Contrast IMPRESSION: No acute intracranial or calvarial abnormality. No major interval change. Electronically Signed: Geoffrey Layne DO at 20:54 EST ,
--- NOTE | 2022-01-23 20:16 | CT_ITS ---
STUDY: CT CERVICAL SPINE WITHOUT CONTRAST REASON FOR EXAM: Female, 72 years old. Head injury. Tripped and fall in part. There is a laceration to the bridge of the nose. RADIATION DOSAGE (If Supplied By Facility): CTDIvol = ( 26.41 ) mGy, DLP = ( 499.52 ) mGycm TECHNIQUE: High resolution transaxial imaging was performed without contrast material. Sagittal and coronal images were reconstructed. Individualized dose optimization techniques were used for this CT. COMPARISON: None FINDINGS: Normal craniovertebral junction. There are degenerative changes of the anterior atlantoaxial articulation. Normal odontoid process. There is straightening of the normal cervical lordosis. Normal vertebral bodies and posterior osseous elements. C2-3: Normal endplates. Normal disc height and morphology. Facet joint degenerative change. Normal central canal and intervertebral neuroforamina. C3-4: Normal endplates. Normal disc height and morphology. Facet joint degenerative change. Normal central canal. Mild narrowing of the lateral intervertebral neuroforamen. C4-5: Complete spondylosis. Mild anterolisthesis of C4 on C5 with disc space narrowing. Facet joint degenerative change without subluxation. Normal central canal. Mild narrowing of the right intervertebral neuroforamen. C5-6: Endplate spondylosis. Loss of disc height. Facet and uncovertebral joint degenerative change. Normal central canal. Narrowing of the left intervertebral neuroforamen. C6-7: Endplate spondylosis. Marked loss of disc height. Facet joint degenerative change. Normal central canal and intervertebral neuroforamina. C7-T1: Endplate spondylosis with mild loss of disc height.. Normal central canal and intervertebral neuroforamina. Normal visualized soft tissue structures. CT/Spine Cervical without Contras IMPRESSION: 1. Degenerative changes cervical spine without acute fracture or subluxation. 2. Straightened cervical lordosis. Muscular strain versus positioning. Note: MRI is more sensitive than CT in detecting cord injury, ligamentous injury and epidural hematoma. If there is continued clinical concern for any of these entities, MRI should be considered. Electronically Signed: Geoffrey Layne DO at 21:06 EST ,
--- NOTE | 2022-01-23 20:18 | EDS_ITS ---
HPI HPI - Fall History of Present Illness Chief Complaint: Fall Informant: patient and spouse/S.O. Narrative Narrative: Patient presents mechanical fall 4 PM [place] [employer]. Tripped on the curb hitting her head no LOC takes baby aspirin tetanus unknown. Neck pain no arm weakness or paresthesias. Right hand pain. There is bleeding in the nose that is controlled. There is no nasal bleeding. Able to ambulate. Total hip arthroplasty is bilaterally in the past. Uses a cane as needed. [facility] Medical History (Updated 01/23/22 @ 21:[address] Carlito Samano, DO) Anxiety and depression Cerebrovascular disease or lesion Essential (primary) hypertension Fibromyalgia GERD (gastroesophageal reflux disease) History of non-ST elevation myocardial infarction (NSTEMI) Hyperlipidemia Left bundle branch block (LBBB) Morbid obesity with BMI of 45.0-49.9, adult ZENON (obstructive sleep apnea) Prinzmetal's angina TIA (transient ischemic attack) Home Medications duloxetine 20 mg capsule,delayed release 30 mg PO DAILY anxiety/depression 05/05/13 [History Last Taken 09/30/19] furosemide 40 mg tablet 60 mg PO DAILY diuretic/water pill 05/05/13 [History Last Taken 09/30/19] garlic 1,000 mg capsule 1,000 mg PO QHS supplement 05/05/13 [History Last Taken 09/30/19] lisinopril 40 mg tablet 40 mg PO DAILY blood pressure 05/05/13 [History Last Taken 09/30/19] lorazepam 0.5 mg tablet 0.5 mg PO QHS anxiety 05/05/13 [History Last Taken 09/30/19] magnesium oxide 400 mg (241.3 mg magnesium) tablet 400 mg PO BID supplement 05/05/13 [History Last Taken 09/30/19] nitroglycerin 0.4 mg sublingual tablet 0.4 mg sublingual Q5M PRN Chest Pain 05/05/13 [History Last Taken 03/30/17] omeprazole 40 mg capsule,delayed release 40 mg PO DAILY gerd/acid reflux 05/05/13 [History Last Taken 09/30/19] ranolazine 500 mg tablet,extended release,12 hr 1,000 mg PO BID heart/chest pain 03/24/14 [History Last Taken 09/30/19] diphenhydramine 25 mg-acetaminophen 500 mg tablet 1 ea PO QHS sleep ##0 06/13/14 [History Last Taken 09/30/19] omega-3 fatty acids-fish oil 684 mg-1,200 mg capsule,delayed release 1 ea PO BID supplement 06/13/14 [History Last Taken 09/30/19] amlodipine 5 mg tablet 5 mg PO DAILY blood pressure 12/08/16 [History Last Taken 09/30/19] carvedilol 12.5 mg tablet 12.5 mg PO BID blood pressure/heart 12/08/16 [History Last Taken 09/30/19] aspirin 81 mg chewable tablet 81 mg PO DAILY@0800 ##30 10/01/19 [Rx Last Taken Unknown] atorvastatin 40 mg tablet 40 mg PO QHS #30 tabs 10/01/19 [Rx Last Taken Unknown] ezetimibe 10 mg tablet 10 mg PO DAILY 10/01/19 [History Last Taken 09/30/19] celecoxib 100 mg capsule (Celebrex) 100 mg PO BID 01/02/22 [History Last Taken Unknown] Allergy/AdvReac Type Severity Reaction Status Date / Time propoxyphene napsylate Allergy Shortness Verified 01/23/22 17:24 [From Darvocet-N 100] of breath amitriptyline HCl AdvReac SEIZURES Verified 01/23/22 17:24 [From Elavil] diltiazem HCl [From Cardizem] AdvReac PANIC Verified 01/23/22 17:24 ATTACKS, CONFUSION gabapentin AdvReac HALLUCINATI Verified 01/23/22 17:24 ONS ibuprofen AdvReac HEART Verified 01/23/22 17:24 PALPITATIONS isosorbide mononitrate AdvReac MIGRAINE,VO Verified 01/23/22 17:24 [From Imdur] MITING paroxetine HCl [From Paxil] AdvReac SEIZURES Verified 01/23/22 17:24 TAPE AdvReac BLISTERS Uncoded 01/23/22 17:24 Family History Father Heart disease Cancer Mother Heart disease Cancer Surgical History History of hysterectomy History of left heart catheterization (2006) Social History Smoking Status: Former smoker ROS ROS ED Constitutional Constitutional ED: Denies chills, fever(s) or sweats Eyes Eyes: Denies change in vision ENT ENT ED: Denies dysphagia or sore throat Cardiovascular Cardiovascular: Denies chest pain, leg edema, palpitations or racing heartbeat Respiratory/Chest Respiratory/Chest: Denies cough, dyspnea or dyspnea on exertion Gastrointestinal Gastrointestinal: Denies abdominal pain, diarrhea, nausea or vomiting Genitourinary Genitourinary ED: Denies dysuria, hematuria or urinary frequency Musculoskeletal Musculoskeletal: Reports extremity pain and neck pain; Denies back pain Integumentary Reports wounds; Denies rash Neurologic Neurologic: Denies headache(s), paresthesias or weakness EXAM Physical Exam Const Vital Signs: 01/23/22 17:26 01/23/22 20:00 01/23/22 22:09 Temperature 97.4 F L Temperature Source Temporal Pulse Rate 66 65 Respiratory Rate 18 18 Respiratory Effort Normal Respiratory Depth Normal Respiratory Pattern Normal Blood Pressure 104/66 114/69 Blood Pressure Mean 78 Pulse Ox 99 97 Oxygen Delivery Method Room Air Room Air Positive well nourished and well developed Constitutional Narrative: GCS 15. General Appearance ED: well developed and NAD HEENT Reports TM's normal bilaterally and moist mucous membranes HEENT Narrative: Hearing aids removed for evaluation. Noted small laceration nasal bridge that is currently sealed. No active bleeding. No proptosis or entrapment. No facial bone tenderness. No trismus. normocephalic Eyes PERRL, EOMs intact bilaterally and conjunctivae normal General Eye ED: Yes normal appearance of both eyes Neck full ROM, no lymphadenopathy and supple Neck Narrative: Paracervical tenderness no midline tenderness or step-offs. General: Negative for tenderness Chest Wall inspection of chest normal and palpation of chest normal Chest: Negative for tenderness Resp normal respiratory effort and normal air movement Effort and Inspection: symmetric chest movement; Negative for respiratory distress Cardio regular rate, regular rhythm and no murmurs Peripheral Pulses: pulses 2+ throughout GI normal to inspection, nondistended, normoactive bowel sounds and non-tender Palpation: Negative for guarding or rebound tenderness present Back/Spine no CVA tenderness and no thoracic nor lumbar tenderness Extremity Extremity Narrative: Right upper extremity full range of motion. Hand examination tender palpation distal dorsal third metacarpal. There is swelling. There is no deformities. Full range of motion of the digits. General Extremety ED: Negative for edema or tenderness General Extremity: Negative for edema Neuro oriented x3, CN's II-XII intact bilaterally and no sensory deficits noted Sensorium / Orientation: awake and alert Skin Skin Narrative: See above MDM MDM MDM Narrative Medical decision making narrative: Patient ambulated in the ED. Right hand contusion with three-view x-ray obtained reviewed by myself read by radiology negative for acute process. Head injury. Trauma scans head and neck negative for acute process. She had close laceration of the nasal bridge. No indication for suturing currently. Tetanus updated. Wound care per nursing. She is reassured on findings. She will follow-up as an outpatient. She was given Tylenol for headache. Concussion precautions discussed. Return precautions. All questions were answered. Radiography Diagnostic Testing: Clinical Impression(s) from Imaging Studies Brain CT 01/23/22 20:16 IMPRESSION: No acute intracranial or calvarial abnormality. No major interval change. Electronically Signed: Geoffrey Layne DO at 20:54 EST Reading Location ID and State: [facility] [employer] Tel [phone], Service support , Cervical Spine CT 01/23/22 20:16 IMPRESSION: 1. Degenerative changes cervical spine without acute fracture or subluxation. 2. Straightened cervical lordosis. Muscular strain versus positioning. Note: MRI is more sensitive than CT in detecting cord injury, ligamentous injury and epidural hematoma. If there is continued clinical concern for any of these entities, MRI should be considered. Electronically Signed: Geoffrey Layne DO at 21:06 EST Reading Location ID and State: [facility] / [employer] Tel [phone], Service support , Hand X-Ray 01/23/22 20:40 IMPRESSION: Arthritic changes of the hand and wrist. There is no evidence of acute fracture or dislocation. Electronically Signed: Geoffrey Layne DO at 21:09 EST Reading Location ID and State: [facility] / [employer] Tel [phone], Service support , Discharge Plan Triage Chief Complaint: Fall ED Provider: Carlito Samano Dx/Rx/DC Orders Clinical Impression: Concussion, Head injury, Abrasion of face, Contusion of hand, right, Tetanus toxoid vaccination administered at current visit Instructions: ED Abrasion, ED Concussion, ED Contusion, Upper Extremity Prescriptions: No Action furosemide 40 MG tablet 60 mg PO DAILY Label Comments: WATER PILL omeprazole 40 MG capsule 40 mg PO DAILY Label Comments: ACID REFLUX magnesium oxide 400 MG tablet 400 mg PO BID Label Comments: SUPPLEMENT lorazepam 0.5 MG tablet 0.5 mg PO QHS Label Comments: ANXIETY nitroglycerin 0.4 MG tablet 0.4 mg sublingual Q5M PRN (Reason: Chest Pain) Label Comments: CHEST PAIN lisinopril 40 MG tablet 40 mg PO DAILY Label Comments: BLOOD PRESSURE duloxetine 20 MG capsule 30 mg PO DAILY Label Comments: DEPRESSION garlic 1,000 MG capsule 1,000 mg PO QHS Label Comments: SUPPLEMENT ranolazine 500 MG tablet 1,000 mg PO BID Label Comments: HEART omega-3 fatty acids-fish oil 1 EACH capsule,delayed release(DR/EC) 1 ea PO BID diphenhydramine-acetaminophen 1 EACH tablet 1 ea PO QHS Qty: 0 carvedilol 12.5 MG tablet 12.5 mg PO BID amlodipine 5 MG tablet 5 mg PO DAILY ezetimibe 10 MG tablet 10 mg PO DAILY atorvastatin 40 MG tablet 40 mg PO QHS Qty: 30 0RF aspirin 81 MG tablet,chewable 81 mg PO DAILY@0800 Qty: 30 0RF celecoxib [Celebrex] 100 mg Capsule 100 mg PO BID Primary Care Provider: Norma Han Referrals: Norma Han MD [Primary Care Provider] - 1 Week Activity Restrictions/Additional Instructions: CT scan head and neck are negative. Right hand x-ray negative. Tetanus was updated. Wound care as discussed. Follow-up with your doctor. Use Tylenol as needed for headache. Disposition Disposition: Home, Self Care Discharge Date/Time: 01/23/22 22:20
[2022-01-23] MEDS: Diphth,Pertuss(Acell),Tet Vac 0.5 ML Vial IM (20:23)
--- NOTE | 2022-01-23 20:40 | RAD_ITS ---
STUDY: X-RAY - RIGHT HAND REASON FOR EXAM: Female, 72 years old. On the parking lot today. Pain. Injury. TECHNIQUE: 4 view(s) of the hand. COMPARISON: None. FINDINGS: There is joint space narrowing of the radiocarpal articulation consistent with degenerative arthrosis. Normal distal radioulnar joint. Normal visualized carpal bones. There is degenerative joint disease of the scaphotrapezium / trapezoid articulation. The remainder of the carpal articulations are normal. There is degenerative arthrosis of the carpometacarpal (CMC) articulation of the thumb. Normal second through fifth carpometacarpal joints. Normal metacarpi. There is degenerative arthrosis of the first metacarpophalangeal (MCP) joint. There is degenerative arthrosis of the interphalangeal joint of the thumb with articular joint space narrowing. Normal proximal and distal phalanges of the thumb. Mild arthrosis of the second and third metacarpophalangeal joints. Normal metacarpophalangeal joints of the fourth and fifth fifth fingers. There is diffuse articular joint space narrowing of the proximal and distal interphalangeal joints of the second through fifth fingers, but without erosive changes or periarticular soft tissue swelling. Normal phalanges of the second through fifth fingers. The soft tissue structures are unremarkable. RAD/Hand Min 3 Views IMPRESSION: Arthritic changes of the hand and wrist. There is no evidence of acute fracture or dislocation. Electronically Signed: Geoffrey Layne DO at 21:09 EST Reading Location ID and State: [id number] Tel [phone], Service support ,
[2022-01-23] MEDS: Acetaminophen 500 MG Tablet 1000 MG PO (21:11)
[2022-01-23 22:09] VITALS: BP 114/69; PULSE 65; RESP 18; O2SAT 97
== END 2022-01-23 22:20 | disposition home or self-care (01) ==
PROVIDERS: Emergency Provider Emergency Medicine; PCP Internal Medicine; Visit Provider Emergency Medicine
DX: S06.0X0A Concussion without loss of consciousness, initial encounter (principal); W10.1XXA Fall (on)(from) sidewalk curb, initial encounter; E78.5 Hyperlipidemia, unspecified; S00.91XA Abrasion of unspecified part of head, initial encounter; S00.81XA Abrasion of other part of head, initial encounter; Z87.891 Personal history of nicotine dependence; I10 Essential (primary) hypertension; S60.221A Contusion of right hand, initial encounter
CPT/HCPCS: 70450; 72125; 73130; 90715; 99283